=== PATIENT | female | born 1980 | race Hispanic/Latino ===

== ENCOUNTER 2016-09-10 16:21 | Emergency (ER) | payer OTHER ==
[2016-09-10] MEDS ORDERED: AMOXICILLIN 500 MG CAP As Ordered ONE (17:39)
[2016-09-10] MEDS ORDERED: ACETAMINOPHEN 325 MG TAB As Ordered ONE (17:40)
--- NOTE | 2016-09-10 17:48 | EDDOCDS ---
Physician Documentation [facility] Name: Anna Olea Age: 36 yrs Sex: Female : 1980 Arrival Date: 09/10/2016 Time: 16:21 Bed Triage 3 Private MD: Louie Louis R. Disposition: 09/10/16 17:40 Discharged to Home/Self Care. Impression: Acute tonsillitis, Acute upper respiratory infections of multiple and unspecified sites. - Condition is Stable. - Discharge Instructions: Tonsillitis, Upper Respiratory Infection, Adult. - Prescriptions for Amoxicillin 500 mg Oral Capsule - take 1 capsule by ORAL route every 8 hours for 10 days; 30 tablet. Prednisone 20 mg Oral Tablet - take 1 tablet by ORAL route once daily for 5 days; 5 tablet. - Work Release Form - 1 day, Medication Reconciliation, Local Pharmacy Hours form. - Follow up: Emergency Department; When: As needed; Reason: Worsening of conditions. Follow up: Louie Loius; When: Call to arrange an appointment; Reason: Wound/Symptom Recheck, Recheck today's complaints, Worsening of conditions, Continuance of care. - Problem is new. - Symptoms are unchanged. Historical: - Allergies: no known allergies; - Home Meds: 1. Vicks NyQuil Cold/Flu Liquicap 6.25-15-325 mg oral cap (Last dose: 09/10/2016 12:00) 2. Pseudoephedrine Unknown Oral Unknown (Last dose: 09/10/2016 12:00) 3. metformin 500 mg Oral Tb24 TID (Last dose: 09/10/2016 07:00) 4. hydrochlorothiazide 25 mg Oral tab 1 tab once daily (Last dose: 09/10/2016 07:00) 5. amlodipine 5 mg Oral tab 1 tab once daily (Last dose: 09/10/2016 08:00) - PMHx: Diabetes - NIDDM: controlled; Sleep Apnea w/ CPAP; Hypertension; - PSHx: ovarian torsion; cyst removal; - Social history: Smoking status: Patient states was never smoker of tobacco. Patient/guardian denies using alcohol, street drugs, No barriers to communication noted, The patient speaks fluent Bengali, Speaks appropriately for age, Preferred Language: Latvian. - Family history: Not pertinent. - : The pt / caregiver states he / she is not on anticoagulants. Home medication list is obtained from the patient. 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 5 in. (165.10 cm); Pain 10/10; 16:22 Body Mass Index 38.94 (106.14 kg, 165.10 cm) dem1 MDM: 17:37 Accucheck ordered. cc10 17:37 Acetaminophen Tablet 975 mg PO once ordered. cc10 17:37 Amoxicillin 500 mg PO once ordered. cc10 17:45 Fingerstick Blood Sugar Ordered. EDMS Administered Medications: 17:43 Drug: Acetaminophen 975 mg [acetaminophen 325 mg tablet (3 tabs)] Route: PO; kr3 17:45 Follow up: Response: Pt left department before re-evaluation is appropriate kr3 17:43 Drug: Amoxicillin 500 mg [amoxicillin 500 mg capsule (1 caps)] Route: PO; kr3 17:45 Follow up: Response: Pt left department before re-evaluation is appropriate kr3 Signatures: Dispatcher [employer] EDKinga MendozaRN RN kr3 Zeinab Gabriel RN RN ttb Sundeep Dia PA-C PAKaela cc10 MTDD
--- NOTE | 2016-09-10 17:48 | EDDOCDS ---
Nurse's Notes [facility] Name: Anna Olea Age: 36 yrs Sex: Female : 1980 Arrival Date: 09/10/2016 Time: 16:21 Bed Triage 3 Private MD: Louie Louis R. Diagnosis: Acute tonsillitis;Acute upper respiratory infections of multiple and unspecified sites Presentation: 09/10 17:02 Presenting complaint: Patient states: "cold chills and throat pain" since last night. ttb Headache and nasal congestion. Risk factors: Stridor is not present. Drooling is not present. Shortness of breath is not present. Cellulitis is not present. Adult Sepsis Screening: The patient does not have new or worsening altered mentation. Patient's respiratory rate is less than 22. Systolic blood pressure is greater than 100. Patient has a qSOFA score of 0- Negative Sepsis Screen. Suicide/Homicide risk assessment- the patient denies having any suicidal and/or homicidal ideations and does not present with any other emotional, behavioral or mental health complaints. Status: Patient is not a service establishment attendant or dependent. Transition of care: patient was not received from another setting of care. 17:02 Acuity: AARON Level 3 ttb 17:02 Method Of Arrival: Walkin/Carried/Asstd ttb Triage Assessment: 17:06 General: Appears comfortable, well nourished, Behavior is appropriate for age, ttb cooperative, pleasant, quiet. Pain: Pain currently is 10 out of 10 on a pain scale. HIV screening NA for this visit Offered previously. Neurological: Level of Consciousness is awake, alert, Reports headache. EENT: Reports nasal congestion nasal discharge pain in throat. Cardiovascular: Chest pain is denied. Respiratory: Airway is patent Respiratory effort is even, unlabored, Reports cough that is. GI: Denies nausea, vomiting, pain. Derm: Skin is normal. 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 Vicks NyQuil Cold/Flu Liquicap 6.25-15-325 mg oral cap (Last dose: 09/10/2016 12:00) 2. Pseudoephedrine Unknown Oral Unknown (Last dose: 09/10/2016 12:00) 3. metformin 500 mg Oral Tb24 TID (Last dose: 09/10/2016 07:00) 4. hydrochlorothiazide 25 mg Oral tab 1 tab once daily (Last dose: 09/10/2016 07:00) 5. amlodipine 5 mg Oral tab 1 tab once daily (Last dose: 09/10/2016 08:00) - PMHx: Diabetes - NIDDM: controlled; Sleep Apnea w/ CPAP; Hypertension; - PSHx: ovarian torsion; cyst removal; - Social history: Smoking status: Patient states was never smoker of tobacco. Patient/guardian denies using alcohol, street drugs, No barriers to communication noted, The patient speaks fluent Micronesian, Speaks appropriately for age, Preferred Language: Chadian. - Family history: Not pertinent. - : The pt / caregiver states he / she is not on anticoagulants. Home medication list is obtained from the patient. 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 Screenin:36 Screening information is obtained from the patient. Fall risk: No risks identified. kr3 Assistance ADL's: requires no assistance with activities of daily living. Abuse/DV Screen: The patient / caregiver reports he/she is: not in a situation that causes fear, pain or injury. Nutritional screening: On diabetic diet. Advance Directives: Currently, there is no health care proxy. home support is adequate. Assessment: 17:35 General: Appears uncomfortable. EENT: Throat deferred to provider. Reports difficulty kr3 swallowing. Respiratory: Airway is patent Respiratory effort is even, unlabored. Derm: Skin is normal. Vital Signs: 16:22 BP 155 / 80; Pulse 122; Resp 18; Temp 102.8(T); Pulse Ox 98% on R/A; Weight 106.14 kg; dem1 Height 5 ft. 5 in. (165.10 cm); Pain 10/10; 16:22 Body Mass Index 38.94 (106.14 kg, 165.10 cm) [facility] Vitals: 16:22 Log In Time: September 10, 2016 at 16:20. [facility] ED Course: 16:22 Patient visited by Cecelia Malone. [facility] 16:22 Louie Louis is Private Physician. [facility] 16:22 Patient moved to Waiting [facility] 16:23 Patient moved to Pre E [facility] 17:03 Triage Initiated ttb 17:07 Patient visited by Zeinab Gabriel RN. ttb 17:27 Patient moved to Triage 3 kr3 17:32 Sun[facility] D[facility] cc[facility] 17:32 Brittney Gaytan MD is Attending Physician. cc10 17:32 Patient visited by Sundeep Dia PA-C. cc10 17:32 Patient visited by Sundeep Dia PA-C. cc10 17:39 Louie Louis is Referral Physician. cc10 17:46 The patient / caregiver is instructed regarding the plan of care and ED course. Patient kr3 has correct armband on for positive identification. 17:46 No IV's were initiated during this patient's visit. No procedures done that require kr3 assistance. Administered Medications: 17:43 Drug: Acetaminophen 975 mg [acetaminophen 325 mg tablet (3 tabs)] Route: PO; kr3 17:45 Follow up: Response: Pt left department before re-evaluation is appropriate kr3 17:43 Drug: Amoxicillin 500 mg [amoxicillin 500 mg capsule (1 caps)] Route: PO; kr3 17:45 Follow up: Response: Pt left department before re-evaluation is appropriate kr3 Order Results: There are currently no results for this order. Outcome: 17:40 Discharge ordered by Provider. cc10 17:46 Discharge Assessment: patient administered narcotics - no. The following High Risk kr3 Discharge criteria are identified: None. Discharged to home ambulatory. Condition: stable. Discharge instructions given to patient, Instructed on discharge instructions, follow up and referral plans. medication usage, Demonstrated understanding of instructions, medications, Pt was receptive of discharge instructions/ teaching. Prescriptions given X 2. No special radiology studies were completed. Property sent home with patient. 17:46 Patient left the ED. kr3 Signatures: Kinga AsencioRN RN kr3 Cecelia Malone dem1 Zeinab Gabriel RN RN ttb Sundeep Dia PA-C PA-C cc10 MTDD
--- NOTE | 2016-09-12 18:48 | EDDOCDS ---
Nurse's Notes [facility] Name: Anna Olea Age: 36 yrs Sex: Female : 1980 Arrival Date: 09/10/2016 Time: 16:21 Bed Triage 3 Private MD: Louie Louis R. Diagnosis: Acute tonsillitis;Acute upper respiratory infections of multiple and unspecified sites Presentation: 09/10 17:02 Presenting complaint: Patient states: "cold chills and throat pain" since last night. ttb Headache and nasal congestion. Risk factors: Stridor is not present. Drooling is not present. Shortness of breath is not present. Cellulitis is not present. Adult Sepsis Screening: The patient does not have new or worsening altered mentation. Patient's respiratory rate is less than 22. Systolic blood pressure is greater than 100. Patient has a qSOFA score of 0- Negative Sepsis Screen. Suicide/Homicide risk assessment- the patient denies having any suicidal and/or homicidal ideations and does not present with any other emotional, behavioral or mental health complaints. Status: Patient is not a social service manager or dependent. Transition of care: patient was not received from another setting of care. 17:02 Acuity: AARON Level 3 ttb 17:02 Method Of Arrival: Walkin/Carried/Asstd ttb Triage Assessment: 17:06 General: Appears comfortable, well nourished, Behavior is appropriate for age, ttb cooperative, pleasant, quiet. Pain: Pain currently is 10 out of 10 on a pain scale. HIV screening NA for this visit Offered previously. Neurological: Level of Consciousness is awake, alert, Reports headache. EENT: Reports nasal congestion nasal discharge pain in throat. Cardiovascular: Chest pain is denied. Respiratory: Airway is patent Respiratory effort is even, unlabored, Reports cough that is. GI: Denies nausea, vomiting, pain. Derm: Skin is normal. 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 Vicks NyQuil Cold/Flu Liquicap 6.25-15-325 mg oral cap (Last dose: 09/10/2016 12:00) 2. Pseudoephedrine Unknown Oral Unknown (Last dose: 09/10/2016 12:00) 3. metformin 500 mg Oral Tb24 TID (Last dose: 09/10/2016 07:00) 4. hydrochlorothiazide 25 mg Oral tab 1 tab once daily (Last dose: 09/10/2016 07:00) 5. amlodipine 5 mg Oral tab 1 tab once daily (Last dose: 09/10/2016 08:00) - PMHx: Diabetes - NIDDM: controlled; Sleep Apnea w/ CPAP; Hypertension; - PSHx: ovarian torsion; cyst removal; - Social history: Smoking status: Patient states was never smoker of tobacco. Patient/guardian denies using alcohol, street drugs, No barriers to communication noted, The patient speaks fluent Omani, Speaks appropriately for age, Preferred Language: Cook Islander. - Family history: Not pertinent. - : The pt / caregiver states he / she is not on anticoagulants. Home medication list is obtained from the patient. 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 Screenin:36 Screening information is obtained from the patient. Fall risk: No risks identified. kr3 Assistance ADL's: requires no assistance with activities of daily living. Abuse/DV Screen: The patient / caregiver reports he/she is: not in a situation that causes fear, pain or injury. Nutritional screening: On diabetic diet. Advance Directives: Currently, there is no health care proxy. home support is adequate. Assessment: 17:35 General: Appears uncomfortable. EENT: Throat deferred to provider. Reports difficulty kr3 swallowing. Respiratory: Airway is patent Respiratory effort is even, unlabored. Derm: Skin is normal. Vital Signs: 16:22 BP 155 / 80; Pulse 122; Resp 18; Temp 102.8(T); Pulse Ox 98% on R/A; Weight 106.14 kg; dem1 Height 5 ft. 5 in. (165.10 cm); Pain 10/10; 16:22 Body Mass Index 38.94 (106.14 kg, 165.10 cm) [facility] Vitals: 16:22 Log In Time: September 10, 2016 at 16:20. [facility] ED Course: 16:22 Patient visited by Cecelia Maolne. [facility] 16:22 Louie Louis is Private Physician. [facility] 16:22 Patient moved to Waiting [facility] 16:23 Patient moved to Pre E [facility] 17:03 Triage Initiated ttb 17:07 Patient visited by Zeinab Gabriel RN. ttb 17:27 Patient moved to Triage 3 kr3 17:32 Sundeep Dia PA-C [facility] cc[facility] 17:32 Brittney Gaytan MD is Attending Physician. cc10 17:32 Patient visited by Sundeep Dia PA-C. cc10 17:32 Patient visited by Sundeep Dia PA-C. cc10 17:39 Louie Louis is Referral Physician. cc10 17:46 The patient / caregiver is instructed regarding the plan of care and ED course. Patient kr3 has correct armband on for positive identification. 17:46 No IV's were initiated during this patient's visit. No procedures done that require kr3 assistance. 17:49 [facility] Payment Agreement was scanned into [employer] and attached to record. gjb 17:55 Patient name changed from Yiselle\\S\\\\S\\Guera Olea\\S\\ to Yiselle\\S\\ \\S\\Lynne Olea. EDMS 09/11 07:09 T-Sheet-- Draft Copy was scanned into [employer] and attached to record. gb Administered Medications: 09/10 17:43 Drug: Acetaminophen 975 mg [acetaminophen 325 mg tablet (3 tabs)] Route: PO; kr3 17:45 Follow up: Response: Pt left department before re-evaluation is appropriate kr3 17:43 Drug: Amoxicillin 500 mg [amoxicillin 500 mg capsule (1 caps)] Route: PO; kr3 17:45 Follow up: Response: Pt left department before re-evaluation is appropriate kr3 Order Results: Lab Order: Fingerstick Blood Sugar; SPEC'M 09/10/16 17:38 Test: BEDSIDE GLUCOSE; Value: 123; Range: 70-105; Abnormal: Above high normal; Units: MG/DL; Status: F Test Note: ; Doctor Notified Dr Order not to Draw Outcome: 17:40 Discharge ordered by Provider. cc10 17:46 Discharge Assessment: patient administered narcotics - no. The following High Risk kr3 Discharge criteria are identified: None. Discharged to home ambulatory. Condition: stable. Discharge instructions given to patient, Instructed on discharge instructions, follow up and referral plans. medication usage, Demonstrated understanding of instructions, medications, Pt was receptive of discharge instructions/ teaching. Prescriptions given X 2. No special radiology studies were completed. Property sent home with patient. 17:46 Patient left the ED. kr3 Signatures: Dispatcher [employer] EDChen Thornton, Kinga Pruitt,RN RN kr3 Cecelia Malone Teresa, RN RN ttb Sundeep Dia, PA-C PA-C [email or web address] Kimberly Chery Chart Complete MTDD
--- NOTE | 2016-09-12 18:48 | EDDOCDS ---
Physician Documentation [facility] Name: Anna Olea Age: 36 yrs Sex: Female : 1980 Arrival Date: 09/10/2016 Time: 16:21 Bed Triage 3 Private MD: Louie Louis R. Disposition: 09/10/16 17:40 Discharged to Home/Self Care. Impression: Acute tonsillitis, Acute upper respiratory infections of multiple and unspecified sites. - Condition is Stable. - Discharge Instructions: Tonsillitis, Upper Respiratory Infection, Adult. - Prescriptions for Amoxicillin 500 mg Oral Capsule - take 1 capsule by ORAL route every 8 hours for 10 days; 30 tablet. Prednisone 20 mg Oral Tablet - take 1 tablet by ORAL route once daily for 5 days; 5 tablet. - Work Release Form - 1 day, Medication Reconciliation, Local Pharmacy Hours form. - Follow up: Emergency Department; When: As needed; Reason: Worsening of conditions. Follow up: Louie Louis; When: Call to arrange an appointment; Reason: Wound/Symptom Recheck, Recheck today's complaints, Worsening of conditions, Continuance of care. - Problem is new. - Symptoms are unchanged. Historical: - Allergies: no known allergies; - Home Meds: 1. Vicks NyQuil Cold/Flu Liquicap 6.25-15-325 mg oral cap (Last dose: 09/10/2016 12:00) 2. Pseudoephedrine Unknown Oral Unknown (Last dose: 09/10/2016 12:00) 3. metformin 500 mg Oral Tb24 TID (Last dose: 09/10/2016 07:00) 4. hydrochlorothiazide 25 mg Oral tab 1 tab once daily (Last dose: 09/10/2016 07:00) 5. amlodipine 5 mg Oral tab 1 tab once daily (Last dose: 09/10/2016 08:00) - PMHx: Diabetes - NIDDM: controlled; Sleep Apnea w/ CPAP; Hypertension; - PSHx: ovarian torsion; cyst removal; - Social history: Smoking status: Patient states was never smoker of tobacco. Patient/guardian denies using alcohol, street drugs, No barriers to communication noted, The patient speaks fluent Micronesian, Speaks appropriately for age, Preferred Language: Greenlandic. - Family history: Not pertinent. - : The pt / caregiver states he / she is not on anticoagulants. Home medication list is obtained from the patient. 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 5 in. (165.10 cm); Pain 10/10; 16:22 Body Mass Index 38.94 (106.14 kg, 165.10 cm) dem1 MDM: 17:37 Accucheck ordered. cc10 17:37 Acetaminophen Tablet 975 mg PO once ordered. cc10 17:37 Amoxicillin 500 mg PO once ordered. cc10 17:45 Fingerstick Blood Sugar Ordered. [facility] 17:49 [facility] Payment Agreement was scanned into [employer] and attached to record. [facility] 17:49 Financial registration complete. [facility] 09/11 07:09 T-Sheet-- Draft Copy was scanned into [employer] and attached to record. gb Administered Medications: 09/10 17:43 Drug: Acetaminophen 975 mg [acetaminophen 325 mg tablet (3 tabs)] Route: PO; kr3 17:45 Follow up: Response: Pt left department before re-evaluation is appropriate kr3 17:43 Drug: Amoxicillin 500 mg [amoxicillin 500 mg capsule (1 caps)] Route: PO; kr3 17:45 Follow up: Response: Pt left department before re-evaluation is appropriate kr3 Signatures: Dispatcher [facility] Chen Do, Javier Herrera Kinga Asencio RN RN kr3 Zeinab Gabriel RN RN ttb Sundeep Dia PA-C PA-C ccKimberly Jo The chart was reviewed and I authenticate all verbal orders and agree with the evaluation and treatment provided.Attachments: 17:49 [facility] Payment Agreement [facility] 09/11 07:09 T-Sheet-- Draft Copy gb Chart Complete MTDD
--- NOTE | 2016-09-12 18:48 | EDDOCDS ---
Physician Documentation [facility] Name: Anna Olea Age: 36 yrs Sex: Female : 1980 Arrival Date: 09/10/2016 Time: 16:21 Bed Triage 3 Private MD: Louie Louis R. Disposition: 09/10/16 17:40 Discharged to Home/Self Care. Impression: Acute tonsillitis, Acute upper respiratory infections of multiple and unspecified sites. - Condition is Stable. - Discharge Instructions: Tonsillitis, Upper Respiratory Infection, Adult. - Prescriptions for Amoxicillin 500 mg Oral Capsule - take 1 capsule by ORAL route every 8 hours for 10 days; 30 tablet. Prednisone 20 mg Oral Tablet - take 1 tablet by ORAL route once daily for 5 days; 5 tablet. - Work Release Form - 1 day, Medication Reconciliation, Local Pharmacy Hours form. - Follow up: Emergency Department; When: As needed; Reason: Worsening of conditions. Follow up: Louie Louis; When: Call to arrange an appointment; Reason: Wound/Symptom Recheck, Recheck today's complaints, Worsening of conditions, Continuance of care. - Problem is new. - Symptoms are unchanged. Historical: - Allergies: no known allergies; - Home Meds: 1. Vicks NyQuil Cold/Flu Liquicap 6.25-15-325 mg oral cap (Last dose: 09/10/2016 12:00) 2. Pseudoephedrine Unknown Oral Unknown (Last dose: 09/10/2016 12:00) 3. metformin 500 mg Oral Tb24 TID (Last dose: 09/10/2016 07:00) 4. hydrochlorothiazide 25 mg Oral tab 1 tab once daily (Last dose: 09/10/2016 07:00) 5. amlodipine 5 mg Oral tab 1 tab once daily (Last dose: 09/10/2016 08:00) - PMHx: Diabetes - NIDDM: controlled; Sleep Apnea w/ CPAP; Hypertension; - PSHx: ovarian torsion; cyst removal; - Social history: Smoking status: Patient states was never smoker of tobacco. Patient/guardian denies using alcohol, street drugs, No barriers to communication noted, The patient speaks fluent Lithuanian, Speaks appropriately for age, Preferred Language: Georgian. - Family history: Not pertinent. - : The pt / caregiver states he / she is not on anticoagulants. Home medication list is obtained from the patient. 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 5 in. (165.10 cm); Pain 10/10; 16:22 Body Mass Index 38.94 (106.14 kg, 165.10 cm) dem1 MDM: 17:37 Accucheck ordered. cc10 17:37 Acetaminophen Tablet 975 mg PO once ordered. cc10 17:37 Amoxicillin 500 mg PO once ordered. cc10 17:45 Fingerstick Blood Sugar Ordered. [facility] 17:49 [facility] Payment Agreement was scanned into [employer] and attached to record. [facility] 17:49 Financial registration complete. [facility] 09/11 07:09 T-Sheet-- Draft Copy was scanned into [employer] and attached to record. gb Administered Medications: 09/10 17:43 Drug: Acetaminophen 975 mg [acetaminophen 325 mg tablet (3 tabs)] Route: PO; kr3 17:45 Follow up: Response: Pt left department before re-evaluation is appropriate kr3 17:43 Drug: Amoxicillin 500 mg [amoxicillin 500 mg capsule (1 caps)] Route: PO; kr3 17:45 Follow up: Response: Pt left department before re-evaluation is appropriate kr3 Signatures: Dispatcher [facility] Chen Do, Javier Herrera Kinga Asencio RN RN kr3 Zeinab Gabriel RN RN ttb Sundeep Dia PA-C PA-C ccKimberly Jo The chart was reviewed and I authenticate all verbal orders and agree with the evaluation and treatment provided.Attachments: 17:49 [facility] Payment Agreement [facility] 09/11 07:09 T-Sheet-- Draft Copy gb Chart Complete MTDD
== END 2016-09-10 17:46 | disposition home or self-care (01) ==
LOC: M ED 16:21
DX: J03.90 Acute tonsillitis, unspecified (principal); E11.9 Type 2 diabetes mellitus without complications; G47.30 Sleep apnea, unspecified; I10 Essential (primary) hypertension; Z79.899 Other long term (current) drug therapy

== ENCOUNTER → 2017-01-21 | Outpatient (REF) | payer OTHER ==
[2017-01-21 12:06] LABS: ALBUMIN 3.7 GM/DL (3.2-5.2); ALBUMIN/GLOBULIN RATIO 0.82 (1.00-1.93); ALKALINE PHOSPHATASE 96 U/L (45-117); ALT/SGPT 156 U/L (12-78); ANION GAP 9 MEQ/L (8-16); AST/SGOT 129 U/L (15-37); BILIRUBIN,TOTAL 0.4 MG/DL (0.2-1.0); BLOOD UREA NITROGEN 12 MG/DL (7-18); CALCIUM LEVEL 9.2 MG/DL (8.5-10.1); CARBON DIOXIDE LEVEL 28 MEQ/L (21-32); CHLORIDE LEVEL 102 MEQ/L (98-107); CREATININE FOR GFR 0.88 MG/DL (0.55-1.02); GLOMERULAR FILTRATION RATE > 60.0 (>60); GLUCOSE, FASTING 219 MG/DL (70-105); POTASSIUM SERUM 3.8 MEQ/L (3.5-5.1); SODIUM LEVEL 139 MEQ/L (136-145); TOTAL PROTEIN 8.2 GM/DL (6.4-8.2)
== END ==
LOC: M SFHCLERA 09:51
PROVIDERS: ATTEND Physician Assistant
DX: E11.65 Type 2 diabetes mellitus with hyperglycemia (principal)

== ENCOUNTER → 2017-05-01 | Outpatient (REF) | payer OTHER ==
[2017-05-02 19:46] LABS: ALBUMIN 3.5 GM/DL (3.2-5.2); ALBUMIN/GLOBULIN RATIO 0.81 (1.00-1.93); ALKALINE PHOSPHATASE 72 U/L (45-117); ALT/SGPT 64 U/L (12-78); ANION GAP 10 MEQ/L (8-16); AST/SGOT 32 U/L (15-37); BILIRUBIN,TOTAL 0.2 MG/DL (0.2-1.0); BLOOD UREA NITROGEN 13 MG/DL (7-18); CALCIUM LEVEL 8.7 MG/DL (8.5-10.1); CARBON DIOXIDE LEVEL 26 MEQ/L (21-32); CHLORIDE LEVEL 105 MEQ/L (98-107); CHOLESTEROL LEVEL 177 MG/DL (<200); CREATININE FOR GFR 0.58 MG/DL (0.55-1.02); GLOMERULAR FILTRATION RATE > 60.0 (>60); GLUCOSE, FASTING 75 MG/DL (70-105); POTASSIUM SERUM 4.4 MEQ/L (3.5-5.1); SODIUM LEVEL 141 MEQ/L (136-145); TOTAL PROTEIN 7.8 GM/DL (6.4-8.2); TRIGLYCERIDES LEVEL 242 MG/DL (<150)
== END ==
LOC: M SFHCLERA 11:44
PROVIDERS: ATTEND Physician Assistant
DX: E11.65 Type 2 diabetes mellitus with hyperglycemia (principal); E78.2 Mixed hyperlipidemia

== ENCOUNTER → 2017-09-28 | Outpatient (REF) | payer OTHER ==
[2017-09-28 12:16] LABS: ALBUMIN 3.8 GM/DL (3.2-5.2); ALBUMIN/GLOBULIN RATIO 0.81 (1.00-1.93); ALKALINE PHOSPHATASE 86 U/L (45-117); ALT/SGPT 68 U/L (12-78); ANION GAP 7 MEQ/L (8-16); AST/SGOT 30 U/L (7-37); BILIRUBIN,TOTAL 0.3 MG/DL (0.2-1.0); BLOOD UREA NITROGEN 13 MG/DL (7-18); CALCIUM LEVEL 9.3 MG/DL (8.5-10.1); CARBON DIOXIDE LEVEL 31 MEQ/L (21-32); CHLORIDE LEVEL 104 MEQ/L (98-107); CHOLESTEROL LEVEL 200 MG/DL (<200); CHOLESTEROL RISK RATIO 4.545 (<5); CREATININE FOR GFR 0.58 MG/DL (0.55-1.02); GLOMERULAR FILTRATION RATE > 60.0 (>60); GLUCOSE, FASTING 83 MG/DL (70-100); HDL CHOLESTEROL 44 MG/DL (>40); LDL CHOLESTEROL 108.4 MG/DL (<100); NON-HDL-C 156 MG/DL; POTASSIUM SERUM 4.6 MEQ/L (3.5-5.1); SODIUM LEVEL 142 MEQ/L (136-145); TOTAL PROTEIN 8.5 GM/DL (6.4-8.2); TRIGLYCERIDES LEVEL 238 MG/DL (<150)
[2017-09-28 12:38] LABS: ESTIMATED AVERAGE GLUCOSE 151 MG/DL (60-110); HEMOGLOBIN A1c 6.9 %
== END ==
LOC: M SFHCLERA 09:05
DX: I10 Essential (primary) hypertension (principal); E11.65 Type 2 diabetes mellitus with hyperglycemia; E78.2 Mixed hyperlipidemia

== ENCOUNTER → 2017-12-28 | Outpatient (REF) | payer OTHER ==
[2017-12-28 12:19] LABS: ALBUMIN 3.7 GM/DL (3.2-5.2); ALKALINE PHOSPHATASE 94 U/L (45-117); ALT/SGPT 63 U/L (12-78); ANION GAP 6 MEQ/L (8-16); AST/SGOT 35 U/L (7-37); BILIRUBIN,TOTAL 0.2 MG/DL (0.2-1.0); BLOOD UREA NITROGEN 16 MG/DL (7-18); CALCIUM LEVEL 9.3 MG/DL (8.5-10.1); CARBON DIOXIDE LEVEL 26 MEQ/L (21-32); CHLORIDE LEVEL 107 MEQ/L (98-107); CHOLESTEROL LEVEL 207 MG/DL (<200); CHOLESTEROL RISK RATIO 5.914 (<5); CREATININE FOR GFR 0.57 MG/DL (0.55-1.30); GLOMERULAR FILTRATION RATE > 60.0 (>60); GLUCOSE, FASTING 126 MG/DL (70-100); HDL CHOLESTEROL 35 MG/DL (>40); NON-HDL-C 172 MG/DL; POTASSIUM SERUM 4.8 MEQ/L (3.5-5.1); SODIUM LEVEL 139 MEQ/L (136-145); TOTAL PROTEIN 8.3 GM/DL (6.4-8.2); TRIGLYCERIDES LEVEL 429 MG/DL (<150)
[2017-12-28 14:42] LABS: ESTIMATED AVERAGE GLUCOSE 157 MG/DL (60-110); HEMOGLOBIN A1c 7.1 %
== END ==
LOC: M SFHCLERA 07:53
DX: E11.65 Type 2 diabetes mellitus with hyperglycemia (principal); E78.2 Mixed hyperlipidemia

== ENCOUNTER 2018-08-17 18:52 | Emergency (ER) | payer OTHER ==
[2018-08-17 21:24] LABS: APPEARANCE, URINE HAZY (CLEAR); BACTERIA, URINE AUTO 3+ (NEGATIVE); BILIRUBIN, URINE AUTO NEGATIVE (NEGATIVE); BLOOD, URINE BLOOD NEGATIVE (NEGATIVE); COLOR, URINE YELLOW (YELLOW); CONTROL LINE UCG INT CTR LINE PRESENT; GLUCOSE, URINE (UA) AUTO NEGATIVE (NEGATIVE); KETONE, URINE AUTO NEGATIVE (NEGATIVE); LEUKOCYTE ESTERASE, URINE AUTO TRACE (NEGATIVE); MUCUS, URINE SMALL (NEGATIVE); NITRITE, URINE AUTO NEGATIVE (NEGATIVE); PROTEIN, URINE AUTO 1+ mg/dL (NEGATIVE); RBC, URINE AUTO 1 /HPF (0-3); SPECIFIC GRAVITY URINE AUTO 1.032 (1.002-1.035); SQUAMOUS EPITHELIAL CELL UR AU 5 /HPF (0-6); URINE PREG TEST NEGATIVE (NEGATIVE); WBC, URINE AUTO 6 /HPF (0-3)
== END 2018-08-17 21:51 | disposition home or self-care (01) ==
LOC: M ED 18:52
DX: K52.9 Noninfective gastroenteritis and colitis, unspecified (principal); E11.9 Type 2 diabetes mellitus without complications; I10 Essential (primary) hypertension
CPT/HCPCS: 84703

== ENCOUNTER → 2018-09-02 | Outpatient (REF) | payer OTHER ==
[~2018-09-02] MED LIST: ONDA4TAB6 PO; PEPC1TAB5 PO
== END ==
LOC: M SFHCLERA 14:34
PROVIDERS: ATTEND Nurse Practitioner Family
DX: R53.81 Other malaise (principal)

== ENCOUNTER → 2018-09-20 | Outpatient (REF) | payer OTHER ==
[2018-09-20 13:49] LABS: BASO # 0.1 10^3/uL (0.0-0.2); BASO % 0.5 % (0.0-1.0); EOS # 0.3 10^3/uL (0.0-0.50); EOS % 2.5 % (0.0-3.0); HEMATOCRIT 43.2 % (36.0-47.0); HEMOGLOBIN 13.9 g/dl (12.0-15.5); LYMPH % 27.7 % (24.0-44.0); MEAN CORPUSCULAR HEMOGLOBIN 26.8 pg (27.0-33.0); MEAN CORPUSCULAR HGB CONC 32.2 g/dl (32.0-36.5); MEAN CORPUSCULAR VOLUME 83.2 fl (80.0-96.0); MONO # 0.9 10^3/uL (0.0-0.8); MONO % 8.6 % (0.0-5.0); NEUTROPHILS # 6.6 10^3/uL (1.8-7.7); NEUTROPHILS % 60.4 % (36.0-66.0); PLATELET COUNT, AUTOMATED 360 10^3/uL (150-450); RED BLOOD COUNT 5.19 10^6/uL (4.00-5.40); WHITE BLOOD COUNT 10.9 10^3/uL (4.0-10.0)
[2018-09-20 14:01] LABS: ALBUMIN 3.7 GM/DL (3.2-5.2); ALT/SGPT 60 U/L (12-78); BILIRUBIN,TOTAL 0.2 MG/DL (0.2-1.0); BLOOD UREA NITROGEN 15 MG/DL (7-18); CALCIUM LEVEL 9.6 MG/DL (8.5-10.1); CARBON DIOXIDE LEVEL 25 MEQ/L (21-32); CHLORIDE LEVEL 102 MEQ/L (98-107); CREATININE FOR GFR 0.68 MG/DL (0.55-1.30); FREE T4 0.89 NG/DL (0.76-1.46); GLOMERULAR FILTRATION RATE > 60.0 (>60); GLUCOSE, FASTING 116 MG/DL (70-100); POTASSIUM SERUM 4.3 MEQ/L (3.5-5.1); SODIUM LEVEL 135 MEQ/L (136-145); TOTAL PROTEIN 8.2 GM/DL (6.4-8.2)
[2018-09-20 15:30] LABS: HEMOGLOBIN A1c 8.1 %
== END ==
LOC: M SFHCPLAZ 11:49
PROVIDERS: ATTEND Physician Assistant Medical
DX: F41.9 Anxiety disorder, unspecified (principal); I10 Essential (primary) hypertension; E11.65 Type 2 diabetes mellitus with hyperglycemia

== ENCOUNTER → 2018-09-20 | Outpatient (REF) ==
[2018-09-21 10:13] LABS: RUBELLA IgG QUALITATIVE IMMUNE (IMMUNE)
[2018-09-22 08:17] LABS: RUBEOLA IgG ANTIBODY 55.4 AU/mL (Immune >29.9)
== END ==
LOC: M LAB 15:46
PROVIDERS: ATTEND Nurse Practitioner Adult Health
DX: Z00.00 Encounter for general adult medical examination without abnormal findings (principal)

== ENCOUNTER → 2018-10-11 | Outpatient (CLI) | payer OTHER ==
--- NOTE | 2018-10-11 16:39 | REP ---
Pelvic sonography: History: Pelvic pain. Comparison study: June 11, 2015. This prior study reported 5.3 cm simple right ovarian cyst. Sonographic findings: Transabdominal and transvaginal scanning are performed. Uterine dimensions are normal at 8.8 x 3.9 x 5.2 cm. Endometrial echo 0.7 cm thick. Uterine texture is somewhat heterogeneous. Multiple Nabothian cysts are seen. The largest of these measure 1.5 cm in greatest diameter. Visualized bladder abernathy are smooth. Today's study demonstrates a 2.0 x 1.6 x 1.5 cm follicle cyst in the right ovary. No larger cyst is seen. No free fluid is noted. The right ovary measures 3.0 x 2.0 x 1.7 cm. Left ovarian dimensions are 3.4 x 2.2 x 1.6 cm. The left ovary has a normal appearance. Doppler flow is normal in both ovaries. Resistive indices are 0.55 on the right and 0.49 on the left. Impression: 2.0 cm follicle cyst right ovary. Normal pelvic sonography. Electronically Signed by Anoop Mane MD 10/11/2018 08:41 P
--- NOTE | 2018-10-12 02:51 | REP ---
Clinical: Acute pleuritic chest pain . Comparison: None . Technique: PA and lateral. Findings: The mediastinum and cardiac silhouette are normal. The lung hudson are clear and without acute consolidation, effusion, or pneumothorax. The skeletal structures are intact and normal. Impression: 1. No acute cardiopulmonary process. Electronically Signed by Gary Benavides MD 10/12/2018 02:43 A
== END ==
LOC: M RAD 14:09
PROVIDERS: ATTEND Physician Assistant Medical
DX: N83.01 Follicular cyst of right ovary (principal); R07.81 Pleurodynia

== ENCOUNTER → 2018-10-11 | Outpatient (REF) | payer OTHER ==
[2018-10-11 12:14] LABS: APPEARANCE, URINE CLEAR (CLEAR); BACTERIA, URINE AUTO 1+ (NEGATIVE); BILIRUBIN, URINE AUTO NEGATIVE (NEGATIVE); BLOOD, URINE BLOOD NEGATIVE (NEGATIVE); COLOR, URINE YELLOW (YELLOW); GLUCOSE, URINE (UA) AUTO NEGATIVE (NEGATIVE); KETONE, URINE AUTO NEGATIVE (NEGATIVE); LEUKOCYTE ESTERASE, URINE AUTO NEGATIVE (NEGATIVE); MUCUS, URINE SMALL (NEGATIVE); NITRITE, URINE AUTO NEGATIVE (NEGATIVE); PROTEIN, URINE AUTO NEGATIVE (NEGATIVE); RBC, URINE AUTO 1 /HPF (0-3); SPECIFIC GRAVITY URINE AUTO 1.018 (1.002-1.035); SQUAMOUS EPITHELIAL CELL UR AU 1 /HPF (0-6); UROBILINOGEN, URINE AUTO 0.2 mg/dL (0.0-2.0); WBC, URINE AUTO 3 /HPF (0-3)
[2018-10-11 14:29] LABS: BASO # 0.1 10^3/uL (0.0-0.2); BASO % 0.6 % (0.0-1.0); EOS # 0.2 10^3/uL (0.0-0.50); EOS % 2.2 % (0.0-3.0); HEMATOCRIT 43.8 % (36.0-47.0); HEMOGLOBIN 13.5 g/dl (12.0-15.5); LYMPH # 2.9 10^3/uL (1.5-4.5); LYMPH % 33.8 % (24.0-44.0); MEAN CORPUSCULAR HEMOGLOBIN 26.5 pg (27.0-33.0); MEAN CORPUSCULAR HGB CONC 30.8 g/dl (32.0-36.5); MEAN CORPUSCULAR VOLUME 85.9 fl (80.0-96.0); MONO # 0.6 10^3/uL (0.0-0.8); NEUTROPHILS # 4.9 10^3/uL (1.8-7.7); NEUTROPHILS % 56.2 % (36.0-66.0); PLATELET COUNT, AUTOMATED 347 10^3/uL (150-450); WHITE BLOOD COUNT 8.7 10^3/uL (4.0-10.0)
[2018-10-11 15:02] LABS: ALBUMIN 3.8 GM/DL (3.2-5.2); ALT/SGPT 75 U/L (12-78); AMYLASE 91 U/L (25-115); BILIRUBIN,TOTAL 0.2 MG/DL (0.2-1.0); BLOOD UREA NITROGEN 12 MG/DL (7-18); CALCIUM LEVEL 9.5 MG/DL (8.5-10.1); CARBON DIOXIDE LEVEL 30 MEQ/L (21-32); CHLORIDE LEVEL 101 MEQ/L (98-107); CREATININE FOR GFR 0.65 MG/DL (0.55-1.30); GLOMERULAR FILTRATION RATE > 60.0 (>60); GLUCOSE, FASTING 158 MG/DL (70-100); LIPASE 224 U/L (73-393); POTASSIUM SERUM 3.9 MEQ/L (3.5-5.1); SODIUM LEVEL 137 MEQ/L (136-145)
== END ==
LOC: M SFHCPLAZ 10:14
PROVIDERS: ATTEND Physician Assistant Medical
DX: R10.9 Unspecified abdominal pain (principal); R07.81 Pleurodynia

== ENCOUNTER → 2018-11-22 | Outpatient (REF) | payer OTHER ==
[2018-11-22 11:03] LABS: CHOLESTEROL RISK RATIO 3.951 (<5)
== END ==
LOC: M SFHCPLAZ 09:04
PROVIDERS: ATTEND Physician Assistant Medical
DX: E78.2 Mixed hyperlipidemia (principal)

== ENCOUNTER → 2019-01-10 | Outpatient (REF) | payer OTHER | LOC: M SFHCLERA 09:43 | PROVIDERS: ATTEND Physician Assistant | DX: L50.9 Urticaria, unspecified (principal) ==

== ENCOUNTER → 2019-05-15 | Outpatient (REF) | payer OTHER ==
[2019-05-15 14:55] LABS: BASO # 0.1 10^3/uL (0.0-0.2); BASO % 0.6 % (0.0-1.0); EOS # 0.3 10^3/uL (0.0-0.5); EOS % 3.1 % (0.0-3.0); HEMATOCRIT 45.4 % (36.0-47.0); HEMOGLOBIN 14.2 g/dl (12.0-15.5); LYMPH # 2.4 10^3/uL (1.5-5.0); LYMPH % 29.6 % (24.0-44.0); MEAN CORPUSCULAR HEMOGLOBIN 27.4 pg (27.0-33.0); MEAN CORPUSCULAR HGB CONC 31.3 g/dl (32.0-36.5); MEAN CORPUSCULAR VOLUME 87.5 fl (80.0-96.0); MONO # 0.6 10^3/uL (0.0-0.8); MONO % 7.5 % (0.0-5.0); NEUTROPHILS # 4.7 10^3/uL (1.5-8.5); NEUTROPHILS % 58.8 % (36.0-66.0); PLATELET COUNT, AUTOMATED 294 10^3/uL (150-450); RED BLOOD COUNT 5.19 10^6/uL (4.00-5.40)
[2019-05-15 15:15] LABS: ALBUMIN 3.7 GM/DL (3.2-5.2); ALT/SGPT 113 U/L (12-78); BILIRUBIN,TOTAL 0.3 MG/DL (0.2-1.0); BLOOD UREA NITROGEN 11 MG/DL (7-18); CALCIUM LEVEL 9.8 MG/DL (8.5-10.1); CARBON DIOXIDE LEVEL 28 MEQ/L (21-32); CHLORIDE LEVEL 101 MEQ/L (98-107); CHOLESTEROL LEVEL 219 MG/DL (<200); CHOLESTEROL RISK RATIO 5.475 (<5); CPK CREATINE PHOSPHOKINASE 148 U/L (26-192); CREATININE FOR GFR 0.69 MG/DL (0.55-1.30); FREE T4 1.11 NG/DL (0.76-1.46); GLOMERULAR FILTRATION RATE > 60.0 (>60); GLUCOSE, FASTING 225 MG/DL (70-100); HDL CHOLESTEROL 40 MG/DL (>40); NON-HDL-C 179 MG/DL; POTASSIUM SERUM 4.2 MEQ/L (3.5-5.1); SODIUM LEVEL 137 MEQ/L (136-145); TOTAL PROTEIN 8.4 GM/DL (6.4-8.2); TRIGLYCERIDES LEVEL 416 MG/DL (<150)
[2019-05-15 15:40] LABS: HEMOGLOBIN A1c 10.8 %
== END ==
LOC: M SFHCPLAZ 14:05
PROVIDERS: ATTEND Nurse Practitioner Family
DX: I10 Essential (primary) hypertension (principal); E78.2 Mixed hyperlipidemia; F41.9 Anxiety disorder, unspecified

== ENCOUNTER → 2019-09-29 | Outpatient (REF) | payer OTHER ==
[2019-09-29 11:44] LABS: ALBUMIN 3.8 GM/DL (3.2-5.2); ALT/SGPT 76 U/L (12-78); BILIRUBIN,TOTAL 0.3 MG/DL (0.2-1.0); BLOOD UREA NITROGEN 11 MG/DL (7-18); CALCIUM LEVEL 9.8 MG/DL (8.5-10.1); CARBON DIOXIDE LEVEL 30 MEQ/L (21-32); CHLORIDE LEVEL 99 MEQ/L (98-107); CHOLESTEROL LEVEL 190 MG/DL (<200); CHOLESTEROL RISK RATIO 4.634 (<5); CREATININE FOR GFR 0.71 MG/DL (0.55-1.30); GLOMERULAR FILTRATION RATE > 60.0 (>60); GLUCOSE, FASTING 225 MG/DL (70-100); HDL CHOLESTEROL 41 MG/DL (>40); LDL CHOLESTEROL 73 MG/DL (<100); NON-HDL-C 149 MG/DL; POTASSIUM SERUM 4.1 MEQ/L (3.5-5.1); SODIUM LEVEL 136 MEQ/L (136-145); TOTAL PROTEIN 8.6 GM/DL (6.4-8.2); TRIGLYCERIDES LEVEL 380 MG/DL (<150)
[2019-09-29 12:13] LABS: HEMOGLOBIN A1c 10.1 %
== END ==
LOC: M SFHCPLAZ 09:00
PROVIDERS: ATTEND Physician Assistant Medical
DX: E78.2 Mixed hyperlipidemia (principal); E11.65 Type 2 diabetes mellitus with hyperglycemia

== ENCOUNTER 2020-01-11 16:52 | Emergency (ER) | payer OTHER ==
[~2020-01-11] VITALS: Ht 165.1 cm; Wt 104.5 kg
[2020-01-11 16:53] VITALS: BP 140/84
[2020-01-11] MEDS ORDERED: HYDR25TAB (17:00)
[2020-01-11] MEDS ORDERED: ROSU10TA6 (17:00)
[2020-01-11] MEDS ORDERED: TRUL10IN (17:00)
[2020-01-11] MEDS ORDERED: METO1TAB7 (17:00)
[2020-01-11] MEDS ORDERED: AMLO5TAB6 (17:00)
[2020-01-11] MEDS ORDERED: NAPR-837 PO (18:07)
--- NOTE | 2020-01-11 18:13 | REP ---
Clinical: Acute pain . Technique: Internal rotation, external rotation, and Y view left shoulder . Findings: No acute fracture or dislocation. The acromioclavicular and glenohumeral joints are intact. No periarticular calcifications or significant degenerative changes are appreciated. Sub acromial space is normal. Surrounding soft tissues are unremarkable. Impression: Normal age-appropriate left shoulder radiographs. No acute fracture or dislocation. Electronically Signed by Gary Benavides MD 01/11/2020 06:05 P
[2020-01-11] MEDS ORDERED: NAPROXEN 250 MG TAB PO ONE (18:15)
== END 2020-01-11 18:25 | disposition home or self-care (01) ==
LOC: M ED 16:52
DX: S46.812A Strain of other muscles, fascia and tendons at shoulder and upper arm level, left arm, initial encounter (principal); X50.1XXA Overexertion from prolonged static or awkward postures, initial encounter; Y92.89 Other specified places as the place of occurrence of the external cause; Y93.89 Activity, other specified; Y99.0 Civilian activity done for income or pay; I10 Essential (primary) hypertension; E78.00 Pure hypercholesterolemia, unspecified; E11.9 Type 2 diabetes mellitus without complications; Z79.899 Other long term (current) drug therapy; Z79.84 Long term (current) use of oral hypoglycemic drugs

== ENCOUNTER → 2020-10-11 | Outpatient (REF) | payer OTHER ==
[~2020-10-11] MED LIST changes: +AMLO1TAB24; +HYDR-3490; +METO1TAB7; +NAPR-837 PO; +ROSU10TA6; +TRUL10IN
[2020-10-11 14:10] LABS: BASO % 0.4 % (0.0-1.0); EOS # 0.2 10^3/uL (0.0-0.5); EOS % 2.1 % (0.0-3.0); HEMATOCRIT 44.2 % (36.0-47.0); HEMOGLOBIN 13.8 g/dl (12.0-15.5); LYMPH # 2.9 10^3/uL (1.5-5.0); LYMPH % 31.9 % (24.0-44.0); MEAN CORPUSCULAR HEMOGLOBIN 26.6 pg (27.0-33.0); MEAN CORPUSCULAR HGB CONC 31.2 g/dl (32.0-36.5); MEAN CORPUSCULAR VOLUME 85.2 fl (80.0-96.0); MONO # 0.7 10^3/uL (0.0-0.8); MONO % 7.4 % (0.0-5.0); NEUTROPHILS # 5.2 10^3/uL (1.5-8.5); NEUTROPHILS % 57.9 % (36.0-66.0); PLATELET COUNT, AUTOMATED 279 10^3/uL (150-450); RED BLOOD COUNT 5.19 10^6/uL (4.00-5.40); WHITE BLOOD COUNT 8.9 10^3/uL (4.0-10.0)
[2020-10-11 14:20] LABS: HEMOGLOBIN A1c 11.6 %
[2020-10-11 14:43] LABS: ALBUMIN 3.6 GM/DL (3.2-5.2); ALT/SGPT 65 U/L (12-78); BILIRUBIN,TOTAL 0.2 MG/DL (0.2-1.0); BLOOD UREA NITROGEN 15 MG/DL (7-18); CALCIUM LEVEL 9.9 MG/DL (8.5-10.1); CARBON DIOXIDE LEVEL 29 MEQ/L (21-32); CHLORIDE LEVEL 98 MEQ/L (98-107); CHOLESTEROL LEVEL 174 MG/DL (<200); CHOLESTEROL RISK RATIO 4.702 (<5); CREATININE FOR GFR 0.78 MG/DL (0.55-1.30); FREE T4 1.03 NG/DL (0.76-1.46); GLOMERULAR FILTRATION RATE > 60.0 (>58); GLUCOSE, FASTING 357 MG/DL (70-100); HDL CHOLESTEROL 37 MG/DL (>40); NON-HDL-C 137 MG/DL; POTASSIUM SERUM 3.8 MEQ/L (3.5-5.1); SODIUM LEVEL 134 MEQ/L (136-145); TRIGLYCERIDES LEVEL 529 MG/DL (<150)
[2020-10-11 14:45] LABS: TOTAL 25(OH) VITAMIN D 20.7 NG/ML (30.0-100.0)
[2020-10-11 14:48] LABS: CREATININE, URINE 24.7 MG/DL; MALB URINE SIEMENS 28.9 MG/L
== END ==
LOC: M SFHCADAM 10:25
PROVIDERS: ATTEND Physician Assistant Medical
DX: I10 Essential (primary) hypertension (principal); E11.65 Type 2 diabetes mellitus with hyperglycemia; E66.01 Morbid (severe) obesity due to excess calories; E78.2 Mixed hyperlipidemia

== ENCOUNTER → 2021-04-03 | Outpatient (CLI) | payer OTHER ==
[2021-04-03 13:33] LABS: BASO # 0.1 10^3/uL (0.0-0.2); BASO % 0.6 % (0.0-1.0); EOS # 0.2 10^3/uL (0.0-0.5); EOS % 2.7 % (0.0-3.0); HEMATOCRIT 44.3 % (36.0-47.0); HEMOGLOBIN 14.1 g/dl (12.0-15.5); LYMPH # 2.9 10^3/uL (1.5-5.0); LYMPH % 32.3 % (24.0-44.0); MEAN CORPUSCULAR HEMOGLOBIN 26.7 pg (27.0-33.0); MEAN CORPUSCULAR HGB CONC 31.8 g/dl (32.0-36.5); MEAN CORPUSCULAR VOLUME 83.9 fl (80.0-96.0); MONO # 0.6 10^3/uL (0.0-0.8); MONO % 6.1 % (2.0-8.0); NEUTROPHILS # 5.2 10^3/uL (1.5-8.5); PLATELET COUNT, AUTOMATED 326 10^3/uL (150-450); RED BLOOD COUNT 5.28 10^6/uL (4.00-5.40)
[2021-04-03 14:10] LABS: ALBUMIN 3.5 GM/DL (3.2-5.2); ALT/SGPT 55 U/L (12-78); BILIRUBIN,TOTAL 0.3 MG/DL (0.2-1.0); BLOOD UREA NITROGEN 12 MG/DL (7-18); CALCIUM LEVEL 9.5 MG/DL (8.5-10.1); CARBON DIOXIDE LEVEL 30 MEQ/L (21-32); CHLORIDE LEVEL 100 MEQ/L (98-107); CHOLESTEROL LEVEL 161 MG/DL (<200); CHOLESTEROL RISK RATIO 3.926 (<5); CREATININE FOR GFR 0.55 MG/DL (0.55-1.30); GLOMERULAR FILTRATION RATE > 60.0 (>58); GLUCOSE, FASTING 147 MG/DL (70-100); HDL CHOLESTEROL 41 MG/DL (>40); LDL CHOLESTEROL 61 MG/DL (<100); NON-HDL-C 120 MG/DL; SODIUM LEVEL 136 MEQ/L (136-145); TOTAL PROTEIN 7.9 GM/DL (6.4-8.2); TRIGLYCERIDES LEVEL 297 MG/DL (<150)
== END ==
LOC: M PLALAB 11:26
PROVIDERS: ATTEND Physician Assistant Medical
DX: E78.2 Mixed hyperlipidemia (principal); I10 Essential (primary) hypertension; E11.65 Type 2 diabetes mellitus with hyperglycemia

== ENCOUNTER → 2021-05-20 | Outpatient (REF) | LOC: M EMP 08:51 | PROVIDERS: ATTEND Family Medicine | DX: Z11.52 Encounter for screening for COVID-19 (principal) ==

== ENCOUNTER → 2021-06-26 | Outpatient (REF) | LOC: M EMP 09:29 | PROVIDERS: ATTEND Family Medicine | DX: Z11.52 Encounter for screening for COVID-19 (principal) ==

== ENCOUNTER → 2021-07-22 | Outpatient (REF) ==
[2021-07-22 08:22] LABS: RSV AMPLIFICATION POSITIVE (NEGATIVE)
== END ==
LOC: M EMP 07:17
PROVIDERS: ATTEND Family Medicine
DX: Z11.52 Encounter for screening for COVID-19 (principal)

== ENCOUNTER → 2021-11-13 | Outpatient (REF) | LOC: M LAB 15:48 | PROVIDERS: ATTEND Nurse Practitioner Adult Health | DX: Z00.00 Encounter for general adult medical examination without abnormal findings (principal) ==

== ENCOUNTER → 2021-11-14 | Outpatient (CLI) | payer OTHER | LOC: M RAD 16:08 | PROVIDERS: ATTEND Physician Assistant Medical | DX: Z80.8 Family history of malignant neoplasm of other organs or systems (principal) ==

== ENCOUNTER 2021-12-04 08:50 | Emergency (ER) | payer OTHER ==
[~2021-12-04] VITALS: Ht 165.1 cm; Wt 103.7 kg
[2021-12-04 08:50] VITALS: BP 153/97
[2021-12-04] MEDS ORDERED: BASA100I (09:00)
[2021-12-04] MEDS ORDERED: DULA3PEN (09:00)
[2021-12-04] MEDS ORDERED: METF-838 (09:00)
[2021-12-04] MEDS ORDERED: ONDANSETRON 4MG/2ML VIAL IV ONE (10:30)
[2021-12-04] MEDS ORDERED: NS 1,000 ML IV ONE (10:30)
[2021-12-04] MEDS ORDERED: PANTOPRAZOLE 40MG VIAL IV ONE (10:30)
[2021-12-04 11:28] LABS: BASO % 0.2 % (0.0-1.0); EOS # 0.3 10^3/uL (0.0-0.5); EOS % 2.6 % (0.0-3.0); HEMATOCRIT 43.8 % (36.0-47.0); HEMOGLOBIN 13.8 g/dl (12.0-15.5); LYMPH # 2.7 10^3/uL (1.5-5.0); LYMPH % 24.8 % (24.0-44.0); MEAN CORPUSCULAR HEMOGLOBIN 26.2 pg (27.0-33.0); MEAN CORPUSCULAR HGB CONC 31.5 g/dl (32.0-36.5); MEAN CORPUSCULAR VOLUME 83.1 fl (80.0-96.0); MONO # 1.2 10^3/uL (0.0-0.8); MONO % 11.4 % (2.0-8.0); NEUTROPHILS # 6.6 10^3/uL (1.5-8.5); NEUTROPHILS % 60.8 % (36.0-66.0); PLATELET COUNT, AUTOMATED 384 10^3/uL (150-450); RED BLOOD COUNT 5.27 10^6/uL (4.00-5.40); WHITE BLOOD COUNT 10.8 10^3/uL (4.0-10.0)
[2021-12-04 12:19] LABS: ALBUMIN 3.7 GM/DL (3.2-5.2); ALT/SGPT 56 U/L (12-78); BILIRUBIN,DIRECT < 0.1 MG/DL (0.0-0.2); BILIRUBIN,TOTAL 0.4 MG/DL (0.2-1.0); BLOOD UREA NITROGEN 9 MG/DL (7-18); CALCIUM LEVEL 9.1 MG/DL (8.5-10.1); CARBON DIOXIDE LEVEL 26 MEQ/L (21-32); CHLORIDE LEVEL 105 MEQ/L (98-107); CREATININE FOR GFR 0.71 MG/DL (0.55-1.30); GLOMERULAR FILTRATION RATE > 60.0 (>58); GLUCOSE, FASTING 149 MG/DL (70-100); LIPASE 93 U/L (73-393); POTASSIUM SERUM 3.9 MEQ/L (3.5-5.1); SODIUM LEVEL 137 MEQ/L (136-145); TOTAL PROTEIN 8.6 GM/DL (6.4-8.2)
[2021-12-04] MEDS ORDERED: ONDA4TAB6 PO (12:30)
[2021-12-04] MEDS ORDERED: OMEP40CA4 PO (12:30)
== END 2021-12-04 12:41 | disposition home or self-care (01) ==
LOC: M ED 08:50
DX: R11.10 Vomiting, unspecified (principal); R19.7 Diarrhea, unspecified; T50.995A Adverse effect of other drugs, medicaments and biological substances, initial encounter; Y92.89 Other specified places as the place of occurrence of the external cause; E11.9 Type 2 diabetes mellitus without complications; I10 Essential (primary) hypertension; E78.5 Hyperlipidemia, unspecified; E66.9 Obesity, unspecified; Z79.899 Other long term (current) drug therapy; Z79.84 Long term (current) use of oral hypoglycemic drugs; Z79.82 Long term (current) use of aspirin; Z79.4 Long term (current) use of insulin
CPT/HCPCS: 80048; 80076; 81001; 83690; 84702; 85025; 93005; 96361; 96374; 96375; 99284; C9113; J2405

== ENCOUNTER 2022-01-03 11:00 | Emergency (ER) | payer OTHER ==
[~2022-01-03] VITALS: Ht 165.1 cm; Wt 105.9 kg
[~2022-01-03 11:00] MED LIST changes: +BASA100I; +DULA3PEN; +METF-838; +OMEP40CA4 PO
[2022-01-03] MEDS ORDERED: ATOR40TA75 (11:12)
[2022-01-03 12:08] LABS: BASO % 0.4 % (0.0-1.0); EOS # 0.4 10^3/uL (0.0-0.5); EOS % 3.2 % (0.0-3.0); HEMATOCRIT 39.7 % (36.0-47.0); HEMOGLOBIN 12.5 g/dl (12.0-15.5); LYMPH # 3.1 10^3/uL (1.5-5.0); LYMPH % 28.1 % (24.0-44.0); MEAN CORPUSCULAR HEMOGLOBIN 25.9 pg (27.0-33.0); MEAN CORPUSCULAR HGB CONC 31.5 g/dl (32.0-36.5); MEAN CORPUSCULAR VOLUME 82.4 fl (80.0-96.0); MONO # 0.8 10^3/uL (0.0-0.8); MONO % 7.3 % (2.0-8.0); NEUTROPHILS # 6.7 10^3/uL (1.5-8.5); NEUTROPHILS % 60.7 % (36.0-66.0); PLATELET COUNT, AUTOMATED 351 10^3/uL (150-450); RED BLOOD COUNT 4.82 10^6/uL (4.00-5.40); WHITE BLOOD COUNT 11.1 10^3/uL (4.0-10.0)
[2022-01-03 12:30] LABS: CALCIUM LEVEL 9.6 MG/DL (8.5-10.1); CREATININE FOR GFR 1.08 MG/DL (0.55-1.30); GLOMERULAR FILTRATION RATE 59.5 (>58); POTASSIUM SERUM 3.5 MEQ/L (3.5-5.1)
[2022-01-03] MEDS ORDERED: diphenhydrAMINE 50MG/ML VIAL (J1200) IV STA (13:17)
[2022-01-03] MEDS ORDERED: KETOROLAC 30 MG/ML 1ML VIAL IV ONE (13:20)
[2022-01-03] MEDS ORDERED: METOCLOPRAMIDE INJ 10MG/2ML VIAL (J2765 PER 1) IV ONE (13:20)
[2022-01-03 14:55] VITALS: BP 137/77
[2022-01-06 23:07] LABS: IgG P18 AB Absent (.); IgG P23 AB Absent (.); IgG P28 AB Absent (.); IgG P30 AB Absent (.); IgG P39 AB Absent (.); IgG P41 AB Absent (.); IgG P45 AB Absent (.); IgG P66 AB Absent (.); IgG P93 AB Absent (.); IgM P23 AB Absent (.); IgM P39 AB Absent (.); IgM P41 AB Absent (.); LYME IgG WB INTERPRETATION Negative (.); LYME IgM WB INTERPRETATION Negative (.)
== END 2022-01-03 15:15 | disposition home or self-care (01) ==
LOC: M ED 11:00
DX: G43.809 Other migraine, not intractable, without status migrainosus (principal); E11.9 Type 2 diabetes mellitus without complications; E78.5 Hyperlipidemia, unspecified; I10 Essential (primary) hypertension
CPT/HCPCS: 70450; 70544; 70551; 71045; 80048; 83036; 84443; 85025; 85652; 85730; 86617; 93005; 93041; 94760; 96374; 99285; J1200; J1885; J2765

== ENCOUNTER 2022-04-06 07:05 | Emergency (ER) | payer OTHER ==
[~2022-04-06] VITALS: Ht 165.1 cm; Wt 106.3 kg
[~2022-04-06 07:05] MED LIST changes: +ATOR40TA75
[2022-04-06 07:06] VITALS: BP 140/85
[2022-04-06] MEDS ORDERED: diphenhydrAMINE 25MG CAP PO ONE (07:25)
[2022-04-06] MEDS ORDERED: PILL CUTTER 1 EACH XX PRN (07:35)
[2022-04-06] MEDS ORDERED: NS 1,000 ML IV ONE (07:40)
[2022-04-06] MEDS ORDERED: FAMOTIDINE 20MG/2ML VIAL IVP ONE (07:40)
[2022-04-06] MEDS ORDERED: PEPC1TAB5 PO (09:24)
[2022-04-06] MEDS ORDERED: EPIP0.3I2 IM (09:24)
[2022-04-06] MEDS ORDERED: PRED20TA PO (09:24)
[2022-04-06] MEDS ORDERED: BENA25CA4 PO (09:24)
== END 2022-04-06 09:41 | disposition home or self-care (01) ==
LOC: M ED 07:05
DX: R22.0 Localized swelling, mass and lump, head (principal); Z91.018 Allergy to other foods; E11.9 Type 2 diabetes mellitus without complications; I10 Essential (primary) hypertension; E78.5 Hyperlipidemia, unspecified; Z79.899 Other long term (current) drug therapy; Z79.84 Long term (current) use of oral hypoglycemic drugs; Z79.4 Long term (current) use of insulin

== ENCOUNTER → 2022-05-07 | Outpatient (REF) ==
[~2022-05-07] MED LIST changes: +BENA25CA4 PO; +EPIP0.3I2 IM; +PRED20TA PO
== END ==
LOC: M EMP 07:42
PROVIDERS: ATTEND Family Medicine
DX: Z20.822 Contact with and (suspected) exposure to COVID-19 (principal)

== ENCOUNTER → 2022-06-23 | Outpatient (REF) | payer OTHER | LOC: M LAB REF 16:48 | PROVIDERS: ATTEND Student in an Organized Health Care Education/Training Program | DX: J06.9 Acute upper respiratory infection, unspecified (principal) ==

== ENCOUNTER → 2022-07-20 | Outpatient (CLI) | payer OTHER ==
[2022-07-20 15:27] LABS: APPEARANCE, URINE MANUAL TURBID (CLEAR)
[2022-07-20 15:28] LABS: COLOR, URINE MANUAL YELLOW (YELLOW)
[2022-07-20 15:29] LABS: BILIRUBIN, URINE MANUAL NEGATIVE (NEGATIVE); BLOOD URINE MANUAL NEGATIVE (NEGATIVE); GLUCOSE, URINE (UA) MANUAL NEGATIVE (NEGATIVE); KETONE, URINE MANUAL NEGATIVE (NEGATIVE); LEUKOCYTE ESTERASE, URINE MAN NEGATIVE (NEGATIVE); NITRITE, URINE MANUAL NEGATIVE (NEGATIVE); PROTEIN, URINE MANUAL 1+ mg/dL (NEGATIVE); UROBILINOGEN, URINE MANUAL NORMAL (NORMAL)
[2022-07-20 15:34] LABS: BASO % 0.3 % (0.0-1.0); EOS # 0.3 10^3/uL (0.0-0.5); EOS % 2.6 % (0.0-3.0); HEMOGLOBIN 12.7 g/dl (12.0-15.5); LYMPH # 2.7 10^3/uL (1.5-5.0); LYMPH % 24.4 % (24.0-44.0); MEAN CORPUSCULAR HEMOGLOBIN 25.5 pg (27.0-33.0); MEAN CORPUSCULAR HGB CONC 30.2 g/dl (32.0-36.5); MEAN CORPUSCULAR VOLUME 84.2 fl (80.0-96.0); MONO # 0.8 10^3/uL (0.0-0.8); NEUTROPHILS # 7.3 10^3/uL (1.5-8.5); NEUTROPHILS % 65.4 % (36.0-66.0); PLATELET COUNT, AUTOMATED 333 10^3/uL (150-450); RED BLOOD COUNT 4.99 10^6/uL (4.00-5.40); WHITE BLOOD COUNT 11.1 10^3/uL (4.0-10.0)
[2022-07-20 16:00] LABS: AMORPHOUS SEDIMENT, URINE LARGE AMOUNT (NEGATIVE); BACTERIA, URINE NONE SEEN; HYALINE CAST, URINE NONE SEEN /lpf (0-1); RBC, URINE NONE SEEN /hpf (0-3); SQUAMOUS EPITHELIAL CELL URINE NONE SEEN /hpf (SMALL AMT); WBC, URINE NONE SEEN /hpf (0-3)
[2022-07-20 19:12] LABS: ALBUMIN 3.5 GM/DL (3.2-5.2); ALT/SGPT 34 U/L (12-78); BILIRUBIN,TOTAL 0.3 MG/DL (0.2-1.0); BLOOD UREA NITROGEN 13 MG/DL (7-18); CALCIUM LEVEL 9.6 MG/DL (8.5-10.1); CARBON DIOXIDE LEVEL 26 MEQ/L (21-32); CHLORIDE LEVEL 101 MEQ/L (98-107); FREE T4 1.01 NG/DL (0.76-1.46); GLOMERULAR FILTRATION RATE > 60.0 (>58); GLUCOSE, FASTING 172 MG/DL (70-100); POTASSIUM SERUM 4.7 MEQ/L (3.5-5.1); SODIUM LEVEL 134 MEQ/L (136-145); TOTAL 25(OH) VITAMIN D 34.9 NG/ML (30.0-100.0); TOTAL PROTEIN 8.1 GM/DL (6.4-8.2)
[2022-07-20 19:40] LABS: HEMOGLOBIN A1c 10.6 %
== END ==
LOC: M PLALAB 09:17
PROVIDERS: ATTEND Physician Assistant Medical
DX: E11.65 Type 2 diabetes mellitus with hyperglycemia (principal); R10.84 Generalized abdominal pain; I10 Essential (primary) hypertension; R31.9 Hematuria, unspecified; E78.2 Mixed hyperlipidemia; F41.9 Anxiety disorder, unspecified; E55.9 Vitamin D deficiency, unspecified

== ENCOUNTER → 2022-10-09 | Outpatient (CLI) | payer OTHER | LOC: M WHC 11:16 | PROVIDERS: ATTEND Physician Assistant Medical | DX: Z12.31 Encounter for screening mammogram for malignant neoplasm of breast (principal) ==

== ENCOUNTER → 2022-11-10 | Outpatient (CLI) | payer OTHER ==
[2022-11-10 14:19] LABS: BASO % 0.5 % (0.0-1.0); EOS # 0.2 10^3/uL (0.0-0.5); EOS % 2.4 % (0.0-3.0); HEMATOCRIT 39.9 % (36.0-47.0); HEMOGLOBIN 12.2 g/dl (12.0-15.5); LYMPH # 2.3 10^3/uL (1.5-5.0); LYMPH % 29.3 % (24.0-44.0); MEAN CORPUSCULAR HEMOGLOBIN 25.6 pg (27.0-33.0); MEAN CORPUSCULAR HGB CONC 30.6 g/dl (32.0-36.5); MEAN CORPUSCULAR VOLUME 83.8 fl (80.0-96.0); MONO # 0.5 10^3/uL (0.0-0.8); MONO % 6.5 % (2.0-8.0); NEUTROPHILS # 4.8 10^3/uL (1.5-8.5); NEUTROPHILS % 60.8 % (36.0-66.0); PLATELET COUNT, AUTOMATED 297 10^3/uL (150-450); RED BLOOD COUNT 4.76 10^6/uL (4.00-5.40); WHITE BLOOD COUNT 7.9 10^3/uL (4.0-10.0)
[2022-11-10 14:46] LABS: ALBUMIN 3.2 G/DL (3.2-5.2); ALKALINE PHOSPHATASE 82 U/L (46-116); ALT/SGPT 42 U/L (7.0-40); AST/SGOT 25 U/L (<34); BILIRUBIN,TOTAL 0.2 MG/DL (0.3-1.2); BLOOD UREA NITROGEN 10 MG/DL (9-23); CALCIUM LEVEL 8.7 MG/DL (8.5-10.1); CARBON DIOXIDE LEVEL 28 MMOL/L (20-31); CHLORIDE LEVEL 100 MMOL/L (98-107); CHOLESTEROL LEVEL 176 MG/DL (<200); CHOLESTEROL RISK RATIO 4.05 (<5); CREATININE FOR GFR 0.45 MG/DL (0.55-1.30); GLOMERULAR FILTRATION RATE > 60.0 (>58); GLUCOSE, FASTING 286 MG/DL (60-100); HDL CHOLESTEROL 43.4 MG/DL (>40); NON-HDL-C 133 MG/DL; POTASSIUM SERUM 4.2 MMOL/L (3.5-5.1); PTH INTACT 58.2 PG/ML (18.5-88.0); SODIUM LEVEL 137 MMOL/L (136-145); TOTAL PROTEIN 7.1 G/DL (5.7-8.2); TRIGLYCERIDES LEVEL 441 MG/DL (<150)
[2022-11-10 14:49] LABS: THYROID STIMULATING HORMONE 2.364 uIU/ML (0.55-4.78)
[2022-11-10 14:50] LABS: TOTAL 25(OH) VITAMIN D 29.6 NG/ML (20.0-100.0)
[2022-11-10 15:33] LABS: VITAMIN B12 LEVEL 548 PG/ML (211-911)
== END ==
LOC: M PLALAB 10:50
PROVIDERS: ATTEND Physician Assistant Medical
DX: E11.65 Type 2 diabetes mellitus with hyperglycemia (principal)

== ENCOUNTER → 2022-11-11 | Outpatient (CLI) | payer OTHER | LOC: M PLAIMG 12:52 | PROVIDERS: ATTEND Physician Assistant | DX: M25.572 Pain in left ankle and joints of left foot (principal) ==

== ENCOUNTER → 2022-11-17 | Outpatient (CLI) | payer OTHER ==
[2022-11-17 14:58] LABS: HEPATITIS B SURFACE ANTIGEN NEGATIVE (NEGATIVE)
[2022-11-17 15:11] LABS: HIV 1&2 SCREEN CENTAUR NEGATIVE (NEGATIVE)
[2022-11-17 15:20] LABS: HEPATITIS B CORE ANTIBODY IGM NEGATIVE (NEGATIVE)
[2022-11-18 15:51] LABS: GC DNA AMPLIFICATION NEGATIVE (NEGATIVE)
[2022-11-18 16:15] LABS: GC DNA AMPLIFICATION NEGATIVE (NEGATIVE)
== END ==
LOC: M PLALAB 09:56
PROVIDERS: ATTEND Nurse Practitioner Family
DX: Z11.3 Encounter for screening for infections with a predominantly sexual mode of transmission (principal); Z12.4 Encounter for screening for malignant neoplasm of cervix

== ENCOUNTER → 2023-01-27 | Outpatient (REF) | payer OTHER | LOC: M SFHCPLAZ 12:01 | PROVIDERS: ATTEND Physician Assistant Medical | DX: M72.2 Plantar fascial fibromatosis (principal); E55.9 Vitamin D deficiency, unspecified ==

== ENCOUNTER → 2023-05-11 | Outpatient (CLI) | payer OTHER ==
[2023-05-11 15:55] LABS: PTH INTACT 63.7 PG/ML (18.5-88.0)
[2023-05-11 15:59] LABS: TOTAL 25(OH) VITAMIN D 35.1 NG/ML (20.0-100.0)
== END ==
LOC: M PLALAB 13:05
PROVIDERS: ATTEND Physician Assistant Medical
DX: M72.2 Plantar fascial fibromatosis (principal); E55.9 Vitamin D deficiency, unspecified

== ENCOUNTER → 2023-07-20 | Outpatient (CLI) | payer OTHER ==
[2023-07-20 13:09] LABS: BASO # 0.1 10^3/uL (0.0-0.2); BASO % 0.5 % (0.0-1.0); EOS # 0.3 10^3/uL (0.0-0.5); HEMATOCRIT 37.2 % (36.0-47.0); HEMOGLOBIN 11.1 g/dl (12.0-15.5); LYMPH # 2.7 10^3/uL (1.5-5.0); LYMPH % 27.4 % (24.0-44.0); MEAN CORPUSCULAR HEMOGLOBIN 23.5 pg (27.0-33.0); MEAN CORPUSCULAR HGB CONC 29.8 g/dl (32.0-36.5); MEAN CORPUSCULAR VOLUME 78.6 fl (80.0-96.0); MONO % 9.8 % (2.0-8.0); NEUTROPHILS # 5.8 10^3/uL (1.5-8.5); NEUTROPHILS % 58.9 % (36.0-66.0); PLATELET COUNT, AUTOMATED 351 10^3/uL (150-450); RED BLOOD COUNT 4.73 10^6/uL (4.00-5.40); WHITE BLOOD COUNT 9.8 10^3/uL (4.0-10.0)
[2023-07-20 13:24] LABS: ALBUMIN 3.4 G/DL (3.2-5.2); ALKALINE PHOSPHATASE 91 U/L (46-116); ALT/SGPT 59 U/L (7.0-40); AST/SGOT 53 U/L (<34); BILIRUBIN,TOTAL 0.3 MG/DL (0.3-1.2); BLOOD UREA NITROGEN 15 MG/DL (9-23); CALCIUM LEVEL 9.3 MG/DL (8.5-10.1); CARBON DIOXIDE LEVEL 28 MMOL/L (20-31); CHLORIDE LEVEL 99 MMOL/L (98-107); CREATININE FOR GFR 0.55 MG/DL (0.55-1.30); GLOMERULAR FILTRATION RATE > 60.0 (>58); GLUCOSE, FASTING 261 MG/DL (60-100); POTASSIUM SERUM 4.2 MMOL/L (3.5-5.1); SODIUM LEVEL 136 MMOL/L (136-145); THYROID STIMULATING HORMONE 1.501 uIU/ML (0.55-4.78); TOTAL PROTEIN 7.4 G/DL (5.7-8.2)
[2023-07-20 13:25] LABS: FREE T4 1.01 NG/DL (0.89-1.76)
[2023-07-20 16:55] LABS: HEMOGLOBIN A1c 10.9 % (4.0-6.0)
[2023-07-20 19:18] LABS: CHLAMYDIA DNA AMPLIFICATION NEGATIVE (NEGATIVE); GC DNA AMPLIFICATION NEGATIVE (NEGATIVE)
== END ==
LOC: M PLALAB 11:28
PROVIDERS: ATTEND Nurse Practitioner Family
DX: N92.0 Excessive and frequent menstruation with regular cycle (principal); R10.2 Pelvic and perineal pain

== ENCOUNTER → 2023-07-26 | Outpatient (CLI) | payer OTHER | LOC: M WHC 13:05 | PROVIDERS: ATTEND Nurse Practitioner Family | DX: N92.0 Excessive and frequent menstruation with regular cycle (principal) ==

== ENCOUNTER → 2023-08-04 | Outpatient (CLI) | payer OTHER ==
[2023-08-04 16:35] LABS: PERCENT SATURATION 6.7 % (13.2-45.0)
[2023-08-04 16:38] LABS: FERRITIN 3.9 NG/ML (7.3-270.7)
== END ==
LOC: M PLALAB 12:24
PROVIDERS: ATTEND Nurse Practitioner Family
DX: N92.0 Excessive and frequent menstruation with regular cycle (principal)

== ENCOUNTER → 2023-08-16 | Outpatient (CLI) | payer OTHER ==
[~2023-08-16] MED LIST changes: +GASTROGRAFIN SOLUTION 30ML As Ordered ONE; +ISOVUE-370 76% 100ML VIAL As Ordered ONE
== END ==
LOC: M RAD 13:17
PROVIDERS: ATTEND Nurse Practitioner Family
DX: N92.0 Excessive and frequent menstruation with regular cycle (principal); R10.2 Pelvic and perineal pain
CPT/HCPCS: 74178; Q9963; Q9967

== ENCOUNTER → 2023-09-08 | Outpatient (CLI) | payer OTHER ==
[~2023-09-08] MED LIST changes: -GASTROGRAFIN SOLUTION 30ML As Ordered ONE; -ISOVUE-370 76% 100ML VIAL As Ordered ONE
[2023-09-08 18:46] LABS: BASO % 0.1 % (0.0-1.0); EOS # 0.4 10^3/uL (0.0-0.5); EOS % 3.4 % (0.0-3.0); HEMATOCRIT 35.8 % (36.0-47.0); HEMOGLOBIN 10.5 g/dl (12.0-15.5); LYMPH # 2.8 10^3/uL (1.5-5.0); LYMPH % 24.7 % (24.0-44.0); MEAN CORPUSCULAR HEMOGLOBIN 22.9 pg (27.0-33.0); MEAN CORPUSCULAR HGB CONC 29.3 g/dl (32.0-36.5); MEAN CORPUSCULAR VOLUME 78.2 fl (80.0-96.0); MONO # 0.8 10^3/uL (0.0-0.8); MONO % 6.8 % (2.0-8.0); NEUTROPHILS # 7.2 10^3/uL (1.5-8.5); NEUTROPHILS % 64.6 % (36.0-66.0); PLATELET COUNT, AUTOMATED 371 10^3/uL (150-450); RED BLOOD COUNT 4.58 10^6/uL (4.00-5.40); WHITE BLOOD COUNT 11.2 10^3/uL (4.0-10.0)
[2023-09-08 19:26] LABS: TOTAL 25(OH) VITAMIN D 37.2 NG/ML (20.0-100.0)
[2023-09-08 19:27] LABS: FERRITIN 5.8 NG/ML (7.3-270.7)
[2023-09-08 19:28] LABS: FREE T4 1.06 NG/DL (0.89-1.76)
[2023-09-08 19:29] LABS: THYROID STIMULATING HORMONE 1.665 uIU/ML (0.55-4.78)
[2023-09-08 19:30] LABS: ALBUMIN 3.2 G/DL (3.2-5.2); ALKALINE PHOSPHATASE 105 U/L (46-116); ALT/SGPT 44 U/L (7.0-40); AST/SGOT 29 U/L (<34); BILIRUBIN,TOTAL < 0.2 MG/DL (0.3-1.2); BLOOD UREA NITROGEN 9 MG/DL (9-23); CALCIUM LEVEL 8.8 MG/DL (8.5-10.1); CARBON DIOXIDE LEVEL 25 MMOL/L (20-31); CHLORIDE LEVEL 105 MMOL/L (98-107); CHOLESTEROL LEVEL 156 MG/DL (<200); CHOLESTEROL RISK RATIO 4.23 (<5); CREATININE FOR GFR 0.61 MG/DL (0.55-1.30); GLOMERULAR FILTRATION RATE > 60.0 (>58); GLUCOSE, FASTING 301 MG/DL (60-100); HDL CHOLESTEROL 36.8 MG/DL (>40); IRON (FE) 18 UG/DL (50-170); LDL CHOLESTEROL 49.8 MG/DL (<100); NON-HDL-C 119.2 MG/DL; POTASSIUM SERUM 4.2 MMOL/L (3.5-5.1); PTH INTACT 84.3 PG/ML (18.5-88.0); SODIUM LEVEL 135 MMOL/L (136-145); TOTAL PROTEIN 7.4 G/DL (5.7-8.2); TRIGLYCERIDES LEVEL 347 MG/DL (<150)
[2023-09-08 20:34] LABS: HEMOGLOBIN A1c 11.3 % (4.0-6.0)
== END ==
LOC: M PLALAB 15:33
PROVIDERS: ATTEND Physician Assistant Medical
DX: E11.65 Type 2 diabetes mellitus with hyperglycemia (principal)

== ENCOUNTER → 2023-12-03 | Outpatient (CLI) | payer OTHER | LOC: M WHC 15:04 | PROVIDERS: ATTEND Nurse Practitioner Family | DX: Z12.31 Encounter for screening mammogram for malignant neoplasm of breast (principal); R92.313 Mammographic fatty tissue density, bilateral breasts ==

== ENCOUNTER → 2024-06-22 | Outpatient (CLI) | payer OTHER ==
[~2024-06-22] MED LIST changes: +ONDA-282 PO; -ONDA4TAB6 PO; -ROSU10TA6; +ROSU10TA61
[2024-06-22 13:46] LABS: BASO % 0.4 % (0.0-1.0); EOS # 0.2 10^3/uL (0.0-0.5); EOS % 1.8 % (0.0-3.0); HEMATOCRIT 38.4 % (36.0-47.0); HEMOGLOBIN 11.6 g/dl (12.0-15.5); LYMPH # 1.9 10^3/uL (1.5-5.0); LYMPH % 20.8 % (24.0-44.0); MEAN CORPUSCULAR HGB CONC 30.2 g/dl (32.0-36.5); MEAN CORPUSCULAR VOLUME 79.3 fl (80.0-96.0); MONO # 0.7 10^3/uL (0.0-0.8); MONO % 7.5 % (2.0-8.0); NEUTROPHILS # 6.5 10^3/uL (1.5-8.5); NEUTROPHILS % 69.3 % (36.0-66.0); PLATELET COUNT, AUTOMATED 351 10^3/uL (150-450); RED BLOOD COUNT 4.84 10^6/uL (4.00-5.40); WHITE BLOOD COUNT 9.3 10^3/uL (4.0-10.0)
[2024-06-22 14:20] LABS: HEMOGLOBIN A1c 11.3 % (4.0-6.0)
[2024-06-22 14:27] LABS: FERRITIN 12.4 NG/ML (7.3-270.7)
== END ==
LOC: M PLALAB 09:44
PROVIDERS: ATTEND Physician Assistant Medical
DX: D50.9 Iron deficiency anemia, unspecified (principal); E11.65 Type 2 diabetes mellitus with hyperglycemia

== ENCOUNTER → 2024-07-21 | Outpatient (CLI) | payer OTHER | LOC: M PLAIMG 14:09 | PROVIDERS: ATTEND Nurse Practitioner Family | DX: M43.02 Spondylolysis, cervical region (principal); M54.12 Radiculopathy, cervical region ==

== ENCOUNTER → 2024-09-20 | Outpatient (CLI) | payer OTHER | LOC: M PLAIMG 06:42 | PROVIDERS: ATTEND Physician Assistant Medical | DX: M47.22 Other spondylosis with radiculopathy, cervical region (principal) ==

== ENCOUNTER → 2024-10-06 | Outpatient (CLI) | payer OTHER ==
[2024-10-06 13:52] LABS: BASO % 0.4 % (0.0-1.0); EOS # 0.2 10^3/uL (0.0-0.5); EOS % 1.6 % (0.0-3.0); HEMATOCRIT 41.2 % (36.0-47.0); HEMOGLOBIN 12.5 g/dl (12.0-15.5); LYMPH # 2.8 10^3/uL (1.5-5.0); LYMPH % 28.4 % (24.0-44.0); MEAN CORPUSCULAR HEMOGLOBIN 24.6 pg (27.0-33.0); MEAN CORPUSCULAR HGB CONC 30.3 g/dl (32.0-36.5); MEAN CORPUSCULAR VOLUME 81.1 fl (80.0-96.0); MONO # 0.7 10^3/uL (0.0-0.8); MONO % 6.7 % (2.0-8.0); NEUTROPHILS # 6.2 10^3/uL (1.5-8.5); NEUTROPHILS % 62.6 % (36.0-66.0); PLATELET COUNT, AUTOMATED 363 10^3/uL (150-450); RED BLOOD COUNT 5.08 10^6/uL (4.00-5.40); WHITE BLOOD COUNT 9.9 10^3/uL (4.0-10.0)
[2024-10-06 14:18] LABS: HEMOGLOBIN A1c 11.3 % (4.0-6.0)
[2024-10-06 14:21] LABS: ALBUMIN 3.6 G/DL (3.2-5.2); ALKALINE PHOSPHATASE 92 U/L (35-104); ALT/SGPT 53 U/L (7.0-40); AST/SGOT 30 U/L (<34); BILIRUBIN,TOTAL 0.3 MG/DL (0.3-1.2); BLOOD UREA NITROGEN 12 MG/DL (9-23); CALCIUM LEVEL 9.6 MG/DL (8.5-10.1); CARBON DIOXIDE LEVEL 28 MMOL/L (20-31); CHLORIDE LEVEL 98 MMOL/L (98-107); CHOLESTEROL LEVEL 169 MG/DL (<200); CREATININE FOR GFR 0.52 MG/DL (0.55-1.30); GLOMERULAR FILTRATION RATE > 60.0 (>58); GLUCOSE, FASTING 219 MG/DL (60-100); HDL CHOLESTEROL 42.2 MG/DL (>40); IRON (FE) 54 UG/DL (50-170); LDL CHOLESTEROL 53.8 MG/DL (<100); NON-HDL-C 126.8 MG/DL; POTASSIUM SERUM 4.4 MMOL/L (3.5-5.1); SODIUM LEVEL 137 MMOL/L (136-145); TOTAL PROTEIN 8.1 G/DL (5.7-8.2); TRIGLYCERIDES LEVEL 365 MG/DL (<150)
[2024-10-06 14:22] LABS: FERRITIN 10.4 NG/ML (7.3-270.7)
== END ==
LOC: M PLALAB 11:34
PROVIDERS: ATTEND Physician Assistant Medical
DX: K76.0 Fatty (change of) liver, not elsewhere classified (principal)

== ENCOUNTER 2024-10-31 07:14 | Outpatient (CLI) | payer OTHER ==
[~2024-10-31] VITALS: Ht 165.1 cm; Wt 89.0 kg
[~2024-10-31 07:14] MED LIST changes: +ALBUTEROL SULFATE 2.5MG/0.5ML INH NEB SOLN INH PRN; +EPINEPHrine INJ 1 MG/ML 1ML AMP IM PRN; +diphenhydrAMINE 50MG/ML VIAL IV PRN; +methylPREDNISolone 125MG 2ML VIAL IV PRN
[2024-10-31] MEDS: diphenhydrAMINE 25MG CAP PO ONE (07:48)
[2024-10-31] MEDS: ACETAMINOPHEN 650 MG PO ONE (07:48)
[2024-10-31 07:53] VITALS: BP 159/81; O2SAT 98
[2024-10-31] MEDS: IRON SUCROSE 25 MG in NS 23.75 ML IV ONE (08:22)
[2024-10-31] MEDS: IRON SUCROSE 275 MG in NS 250 ML IV ONE (09:13)
[2024-10-31 09:15] VITALS: BP 132/77; O2SAT 100
[2024-10-31 11:12] VITALS: BP 102/68; O2SAT 96
== END 2024-10-31 11:10 ==
LOC: M INFU 07:14
PROVIDERS: ATTEND Physician Assistant Medical
DX: D50.9 Iron deficiency anemia, unspecified (principal)
CPT/HCPCS: 96365; 96366; J1756

== ENCOUNTER 2024-11-07 15:30 | Outpatient (CLI) | payer OTHER ==
[~2024-11-07] VITALS: Ht 165.1 cm; Wt 89.0 kg
[2024-11-07 15:30] VITALS: BP 145/84; O2SAT 97
[~2024-11-07 15:30] MED LIST changes: +IRON SUCROSE 25 MG in NS 23.75 ML IV ONE; +IRON SUCROSE IV ONE; +NS IV ONE
[2024-11-07] MEDS: IRON SUCROSE 300 MG in NS 250 ML OVER 90 MIN. IV ONE (16:49)
[2024-11-07 18:27] VITALS: BP 140/82; O2SAT 98
== END 2024-11-07 18:30 | disposition home or self-care (01) ==
LOC: M INFU 15:30
PROVIDERS: ATTEND Physician Assistant Medical
DX: D50.9 Iron deficiency anemia, unspecified (principal)
CPT/HCPCS: 96365; 96366; J1756

== ENCOUNTER → 2024-12-04 | Outpatient (CLI) | payer OTHER ==
[~2024-12-04] MED LIST changes: -ALBUTEROL SULFATE 2.5MG/0.5ML INH NEB SOLN INH PRN; -EPINEPHrine INJ 1 MG/ML 1ML AMP IM PRN; -IRON SUCROSE 25 MG in NS 23.75 ML IV ONE; -IRON SUCROSE IV ONE; -NS IV ONE; -diphenhydrAMINE 50MG/ML VIAL IV PRN; -methylPREDNISolone 125MG 2ML VIAL IV PRN
== END ==
LOC: M WHC 12:45
PROVIDERS: ATTEND Physician Assistant Medical
DX: Z12.31 Encounter for screening mammogram for malignant neoplasm of breast (principal)

== ENCOUNTER 2025-05-02 21:19 | Emergency (ER) | payer OTHER ==
[~2025-05-02] VITALS: Ht 165.1 cm; Wt 91.4 kg
[2025-05-02 21:36] VITALS: TEMP 98.4
[2025-05-02 22:06] LABS: BASO # 0.1 10^3/uL (0.0-0.2); BASO % 0.6 % (0.0-1.0); EOS # 0.3 10^3/uL (0.0-0.5); EOS % 2.4 % (0.0-3.0); LYMPH # 4.4 10^3/uL (1.5-5.0); LYMPH % 38.5 % (24.0-44.0); MONO # 0.8 10^3/uL (0.0-0.8); MONO % 7.4 % (2.0-8.0); NEUTROPHILS # 5.8 10^3/uL (1.5-8.5); NEUTROPHILS % 50.7 % (36.0-66.0); PLATELET COUNT, AUTOMATED 389 10^3/uL (150-450)
[2025-05-02 22:30] LABS: CK-MB VALUE MASS 1.0 NG/ML (<3.6)
[2025-05-02 22:31] LABS: CALCIUM LEVEL 10.1 MG/DL (8.5-10.1); CARBON DIOXIDE LEVEL 26 MMOL/L (20-31); CHLORIDE LEVEL 100 MMOL/L (98-107); CREATININE FOR GFR 0.54 MG/DL (0.55-1.30); GLOMERULAR FILTRATION RATE > 90.0 (>58); POTASSIUM SERUM 4.0 MMOL/L (3.5-5.1); SODIUM LEVEL 138 MMOL/L (136-145)
[2025-05-02 22:34] LABS: CPK CREATINE PHOSPHOKINASE 93 U/L (34-145); MB/CK RELATIVE INDEX 1.07 (< OR =4)
[2025-05-03 03:40] LABS: CK-MB VALUE MASS < 1.0 NG/ML (<3.6); CPK CREATINE PHOSPHOKINASE 74 U/L (34-145)
[2025-05-03] MEDS: ONDANSETRON 4MG 2ML VIAL IV ONE (04:26)
[2025-05-03] MEDS: KETOROLAC 30 MG/ML 1 ML VIAL IV ONE (04:27)
[2025-05-03] MEDS: NS (Normal Saline) 0.9% 1,000 ML IV ONE (04:27)
[2025-05-03] MEDS: PANTOPRAZOLE 40MG VIAL IV ONE (05:05)
[2025-05-03 05:45] VITALS: BP 115/60; O2SAT 96
== END 2025-05-03 06:10 | disposition home or self-care (01) ==
LOC: M ED 21:19
DX: R07.9 Chest pain, unspecified (principal); R10.9 Unspecified abdominal pain; Z88.0 Allergy status to penicillin; Z79.02 Long term (current) use of antithrombotics/antiplatelets; Z79.4 Long term (current) use of insulin; Z79.899 Other long term (current) drug therapy; Z79.52 Long term (current) use of systemic steroids
CPT/HCPCS: 71045; 76775; 80048; 82550; 82553; 84484; 85025; 87486; 87581; 87633; 87798; 93005; 93041; 94760; 96374; 96375; 99285; J1885; J2405; J2470

== ENCOUNTER 2025-06-14 12:43 | Emergency (ER) | payer OTHER ==
[~2025-06-14] VITALS: Ht 165.1 cm; Wt 92.1 kg
[~2025-06-14 12:43] MED LIST changes: -CETI-24; -METO1TAB32; -NITR100C3 PO; -OMEP40CA5; -ROSU10TA61; +ROSU10TA90
[2025-06-14] MEDS ORDERED: METO1TAB32 (13:02)
[2025-06-14] MEDS ORDERED: OMEP40CA5 (13:02)
[2025-06-14] MEDS ORDERED: CETI-24 (13:02)
[2025-06-14 14:16] LABS: KETONE, URINE AUTO RFX TRACE mg/dL (NEGATIVE); MUCUS, URINE RFX SMALL (NEGATIVE); NITRITE, URINE AUTO RFX NEGATIVE (NEGATIVE); RBC, URINE AUTO RFX 1 /HPF (0-3); SQUAM EPITHELIAL CELL UR AURFX 3 /HPF (0-6); WBC, URINE AUTO RFX 2 /HPF (0-3)
[2025-06-14 14:18] LABS: LEUKOCYTE ESTERASE UR AUTO RFX TRACE (NEGATIVE)
[2025-06-14] MEDS: KETOROLAC 30 MG/ML 1 ML VIAL IV ONE (14:58)
[2025-06-14 15:00] LABS: BASO # 0.0 10^3/uL (0.0-0.2); BASO % 0.5 % (0.0-1.0); EOS # 0.2 10^3/uL (0.0-0.5); EOS % 2.4 % (0.0-3.0); LYMPH # 2.9 10^3/uL (1.5-5.0); LYMPH % 34.4 % (24.0-44.0); MONO # 0.6 10^3/uL (0.0-0.8); MONO % 7.3 % (2.0-8.0); NEUTROPHILS # 4.6 10^3/uL (1.5-8.5); NEUTROPHILS % 55.2 % (36.0-66.0); PLATELET COUNT, AUTOMATED 319 10^3/uL (150-450)
[2025-06-14 15:33] LABS: HCG, SERUM QUALITATIVE NEGATIVE (NEGATIVE)
[2025-06-14 15:34] LABS: CALCIUM LEVEL 9.8 MG/DL (8.5-10.1); CARBON DIOXIDE LEVEL 27 MMOL/L (20-31); CHLORIDE LEVEL 98 MMOL/L (98-107); CREATININE FOR GFR 0.48 MG/DL (0.55-1.30); GLOMERULAR FILTRATION RATE > 90.0 (>58); POTASSIUM SERUM 3.8 MMOL/L (3.5-5.1); SODIUM LEVEL 138 MMOL/L (136-145)
[2025-06-14] MEDS ORDERED: TRIMETHOPRIM/SULFAMETH 80/400 MG TAB PO SCH (16:00)
[2025-06-14 16:30] VITALS: BP 142/80
[2025-06-14 16:45] VITALS: TEMP 97.7; O2SAT 95
[2025-06-14] MEDS ORDERED: NITR100C3 PO (16:48)
[2025-06-14] MEDS: NITROFURANTOIN 100 MG CAP PO ONE (16:56)
== END 2025-06-14 17:03 | disposition home or self-care (01) ==
LOC: M ED 12:43
DX: N39.0 Urinary tract infection, site not specified (principal); E11.9 Type 2 diabetes mellitus without complications; I10 Essential (primary) hypertension; Z88.0 Allergy status to penicillin; Z79.4 Long term (current) use of insulin; Z79.84 Long term (current) use of oral hypoglycemic drugs; Z79.899 Other long term (current) drug therapy
CPT/HCPCS: 36415; 74176; 80048; 81001; 84703; 85025; 87086; 87088; 96374; 99214; 99284; J1885

== ENCOUNTER → 2025-06-14 | Outpatient (REF) | payer OTHER ==
[~2025-06-14] MED LIST changes: +CETI-24; +METO1TAB32; +NITR100C3 PO; +OMEP40CA5
[2025-06-14 15:37] LABS: AMORPHOUS SEDIMENT MODERATE (NEGATIVE); APPEARANCE, URINE TURBID (CLEAR); BACTERIA, URINE AUTO NEGATIVE (NEGATIVE); BILIRUBIN, URINE AUTO NEGATIVE (NEGATIVE); BLOOD, URINE BLOOD 1+ (NEGATIVE); GLUCOSE, URINE (UA) AUTO 1+ mg/dL (NEGATIVE); KETONE, URINE AUTO TRACE mg/dL (NEGATIVE); LEUKOCYTE ESTERASE, URINE AUTO TRACE (NEGATIVE); MUCUS, URINE SMALL (NEGATIVE); NITRITE, URINE AUTO NEGATIVE (NEGATIVE); PROTEIN, URINE AUTO NEGATIVE (NEGATIVE); RBC, URINE AUTO 0 /HPF (0-3); SPECIFIC GRAVITY URINE AUTO 1.026 (1.002-1.035); SQUAMOUS EPITHELIAL CELL UR AU 6 /HPF (0-6); UROBILINOGEN, URINE AUTO 0.2 mg/dL (0.0-2.0); WBC, URINE AUTO 5 /HPF (0-3)
== END ==
LOC: M SFHCPLAZ 15:03
PROVIDERS: ATTEND Physician Assistant Medical
DX: R30.0 Dysuria (principal)

== ENCOUNTER → 2025-07-11 | Outpatient (CLI) | payer OTHER ==
[~2025-07-11] MED LIST changes: +CETI-24; +METO1TAB32; +NITR100C3 PO; +OMEP40CA5
== END ==
LOC: M PLAIMG 15:30
PROVIDERS: ATTEND Physician Assistant Medical
DX: R10.A1 Flank pain, right side (principal)

== ENCOUNTER → 2025-07-11 | Outpatient (CLI) | payer OTHER ==
[2025-07-11 11:49] LABS: BASO # 0.0 10^3/uL (0.0-0.2); BASO % 0.5 % (0.0-1.0); EOS # 0.2 10^3/uL (0.0-0.5); EOS % 3.0 % (0.0-3.0); LYMPH # 2.7 10^3/uL (1.5-5.0); LYMPH % 34.7 % (24.0-44.0); MONO # 0.6 10^3/uL (0.0-0.8); MONO % 7.5 % (2.0-8.0); NEUTROPHILS # 4.2 10^3/uL (1.5-8.5); NEUTROPHILS % 53.8 % (36.0-66.0); PLATELET COUNT, AUTOMATED 304 10^3/uL (150-450)
[2025-07-11 11:55] LABS: APPEARANCE, URINE HAZY (CLEAR); BACTERIA, URINE AUTO NEGATIVE (NEGATIVE); BILIRUBIN, URINE AUTO NEGATIVE (NEGATIVE); BLOOD, URINE BLOOD NEGATIVE (NEGATIVE); GLUCOSE, URINE (UA) AUTO 3+ mg/dL (NEGATIVE); KETONE, URINE AUTO NEGATIVE (NEGATIVE); LEUKOCYTE ESTERASE, URINE AUTO NEGATIVE (NEGATIVE); MUCUS, URINE SMALL (NEGATIVE); NITRITE, URINE AUTO NEGATIVE (NEGATIVE); PROTEIN, URINE AUTO NEGATIVE (NEGATIVE); RBC, URINE AUTO 1 /HPF (0-3); SPECIFIC GRAVITY URINE AUTO 1.028 (1.002-1.035); SQUAMOUS EPITHELIAL CELL UR AU 2 /HPF (0-6); UROBILINOGEN, URINE AUTO 0.2 mg/dL (0.0-2.0); WBC, URINE AUTO 1 /HPF (0-3)
[2025-07-11 12:01] LABS: ESTIMATED AVERAGE GLUCOSE 326.0 MG/DL (60-110)
[2025-07-11 12:27] LABS: ALT/SGPT 84 U/L (7.0-40); AST/SGOT 43 U/L (<34); C REACTIVE PROTEIN QUANTITATIV < 0.50 MG/DL (<1.0); CALCIUM LEVEL 9.1 MG/DL (8.5-10.1); CARBON DIOXIDE LEVEL 27 MMOL/L (20-31); CHLORIDE LEVEL 99 MMOL/L (98-107); CREATININE FOR GFR 0.49 MG/DL (0.55-1.30); GLOMERULAR FILTRATION RATE > 90.0 (>58); IRON (FE) 35 UG/DL (50-170); POTASSIUM SERUM 4.3 MMOL/L (3.5-5.1); SODIUM LEVEL 136 MMOL/L (136-145)
== END ==
LOC: M PLALAB 09:12
PROVIDERS: ATTEND Physician Assistant Medical
DX: R30.0 Dysuria (principal); R10.A1 Flank pain, right side; D72.829 Elevated white blood cell count, unspecified; D50.9 Iron deficiency anemia, unspecified; E11.65 Type 2 diabetes mellitus with hyperglycemia